=== PATIENT | female | born 1930 | race Caucasian/White ===

== ENCOUNTER 2016-09-05 23:40 | Emergency (ER) | payer MEDICARE ==
[2016-09-06 01:14] LABS: Hematocrit 39 % (35-47); Hemoglobin 12.9 g/dl (12.0-16.0); Mean Corpuscular HGB Conc 34 g/dl (31-36); Mean Corpuscular Hemoglobin 30 pg (27-31); Mean Corpuscular Volume 91 fL (80-97); Mean Platelet Volume 9 um3 (7.4-10.4); Red Blood Count 4.26 10^6/ul (4.0-5.4); Red Cell Distribution Width 13 % (10.5-15); White Blood Count 5.9 10^3/ul (3.5-10.8)
[2016-09-06 01:26] LABS: Albumin 4.1 g/dL (3.2-5.2); BUN/Creatinine Ratio 26.8 (8-20); Calcium 9.4 mg/dL (8.6-10.3); EGFR African American 84.8 (>60); EGFR Non-African American 65.9 (>60); Total Bilirubin 0.4 mg/dL (0.2-1.0); Total Protein 7.1 g/dL (6.4-8.9)
[2016-09-06 04:04] VITALS: BP 128/72
[2016-09-06 04:10] LABS: Urine Bacteria 1+ (Absent); Urine Bilirubin Negative (Negative); Urine Glucose Negative (Negative); Urine Nitrite Negative (Negative)
[2016-09-06] MEDS ORDERED: Levofloxacin TAB* 500 MG PO ONE (04:14)
[2016-09-06] MEDS ORDERED: Benzonatate CAP* 100 MG PO ONE (04:17)
--- NOTE | 2016-09-06 06:26 | ED ---
Lilia Belcher Salem, scribed for Da Merino on 09/06/16 at 0022 . GI/ HPI - HPI Summary HPI Summary: Patient is a 86 y/o female who presents to the ED with vaginal bleeding since earlier today. She reports a cough productive for pale sputum and hematuria. She denies dysuria, abd pain, CP, SOB, or melena. She had a UTI in June 2016. - History of Current Complaint Chief Complaint: EDUrogenitalProblems Time Seen by Provider: 09/05/16 23:55 Stated Complaint: RECTAL BLEED Hx Obtained From: Patient, Other: - Friend. Onset/Duration: Started Hours Ago Severity: Moderate Current Severity: Moderate Pain Intensity: 0 Associated Signs and Symptoms: Positive: Hematuria, Cough - Productive for pale sputum.. Negative: Dysuria, Abdominal Pain, Chest Pain, Melena Additional Signs & Symptoms: Positive: Vaginal Bleeding Aggravating Factor(s): Nothing Alleviating Factor(s): Nothing - Allergy/Home Medications Allergies/Adverse Reactions: Allergies Allergy/AdvReac Type Severity Reaction Status Date / Time No Known Allergies Allergy Verified 09/06/16 00:02 PMH/Surg Hx/FS Hx/Imm Hx Cardiovascular History: Reports: Hx Hypertension - ON MEDICATION FOR Musculoskeletal History: Reports: Other Musculoskeletal History - 1972- DISCECTOMY Sensory History: Reports: Hx Cataracts - LEFT EYE, Hx Contacts or Glasses - GLASSES-READING Denies: Hx Hearing Aid Opthamlomology History: Reports: Hx Cataracts - LEFT EYE, Hx Contacts or Glasses - GLASSES-READING - Cancer History Hx Chemotherapy: No Hx Radiation Therapy: No - Surgical History Surgery Procedure, Year, and Place: DISCECTOMY-LOWER BACK-1972. HYSTERECTOMY. CATARACT RIGHT EYE Hx Anesthesia Reactions: No Infectious Disease History: No Infectious Disease History: Denies: Traveled Outside the [place] in Last 30 Days - Family History Known Family History: Positive: Cardiac Disease - Brother. Negative: Diabetes - Social History Alcohol Use: Occasionally Hx Substance Use: No Substance Use Type: Reports: None Hx Tobacco Use: No Smoking Status (MU): Never Smoked Tobacco Review of Systems Negative: Chest Pain Positive: Cough - Productive for pale sputum. . Negative: Shortness Of Breath Negative: Abdominal Pain Positive: hematuria, other - No melena.. Negative: dysuria All Other Systems Reviewed And Are Negative: Yes Physical Exam - Summary Physical Exam Summary: PE done with female refurbish technician: Ana RN. Triage Information Reviewed: Yes Vital Signs On Initial Exam: Initial Vitals Temp Pulse Resp BP Pulse Ox 99.2 F 71 16 161/70 96 09/05/16 23:50 09/05/16 23:50 09/05/16 23:50 09/05/16 23:50 09/05/16 23:50 Vital Signs Reviewed: Yes Appearance: Positive: Well-Appearing, No Pain Distress Skin: Positive: Warm, Skin Color Reflects Adequate Perfusion, Dry Head/Face: Positive: Normal Head/Face Inspection Eyes: Positive: EOMI, KATRINA Neck: Positive: Supple, Nontender Respiratory/Lung Sounds: Positive: Clear to Auscultation, Breath Sounds Present , Other - Coughing. Cardiovascular: Positive: RRR, Pulses are Symmetrical in both Upper and Lower Extremities Abdomen Description: Positive: Nontender, Soft Bowel Sounds: Positive: Present Pelvic Exam: Positive: other - Vaginal bleeding. Musculoskeletal: Positive: Normal, Strength/ROM Intact Neurological: Positive: Normal, Sensory/Motor Intact, Alert, Oriented to Person Place, Time Diagnostics - Vital Signs Vital Signs Temp Pulse Resp BP Pulse Ox 09/05/16 23:50 99.2 F 71 16 161/70 96 - Laboratory Result Diagrams: 09/06/16 01:00 09/06/16 01:00 Lab Statement: Any lab studies that have been ordered have been reviewed, and results considered in the medical decision making process. - Radiology CXR Radiology Interpretation Completed By: ED Physician - Negative. - Ultrasound No standard instances Ultrasound Interpretation Completed By: Radiologist - Ovaries not seen. Hysterectomy. No adnexal masses. No free fluid. Unremarkable visualized portion of bladder. Re-Evaluation - Re-Evaluation First Eval Re-Evaluation Time: 04:15 Comment: Informed pt of plan. GIGU Course/Dx - Diagnoses Provider Diagnoses: UTI (urinary tract infection), Hematuria, Vaginal bleeding Discharge - Discharge Plan Condition: Stable Disposition: HOME Prescriptions: Benzonatate CAP* [Tessalon CAP*] 100 mg PO TID #15 cap Levofloxacin TAB* [Levaquin TAB*] 500 mg PO DAILY #6 tab Patient Education Materials: Benzonatate (By mouth), Levofloxacin (By mouth), Urinary Tract Infection in Women (ED), Hematuria (ED) Referrals: Christophe Nagel MD [Medical Doctor] - Additional Instructions: Follow up with Dr. Nagel (forestry fire aid) within 3 days. The documentation as recorded by the Lilia velasquez Salem accurately reflects the service I personally performed and the decisions made by Angelique camejo Emmanuel.
--- NOTE | 2016-09-06 07:35 | RAD ---
INDICATION: Cough COMPARISON: None TECHNIQUE: An AP portable view obtained at 0040 hours is submitted. FINDINGS: Bones/Soft Tissues: There are no acute bony findings. Cardiomediastinal: The cardiomediastinal silhouette is normal. Lungs: There are no infiltrates. Pleura: There are no pleural effusions. Other: None IMPRESSION: NO ACTIVE DISEASE.
--- NOTE | 2016-09-06 07:38 | RAD ---
INDICATION: Vaginal bleeding COMPARISON: None TECHNIQUE: Longitudinal and transverse transabdominal scans of the pelvis were obtained. FINDINGS: Uterus: Hysterectomy Free fluid: There is no significant free fluid . Ovaries: The ovaries are not identified. Other: None IMPRESSION: HISTORY. NONVISUALIZATION THE OVARIES LIKELY AGE-RELATED. NO MASS OR FREE FLUID IDENTIFIED.
== END 2016-09-06 04:31 | disposition home or self-care (01) ==
LOC: ED 23:40
DX: N39.0 Urinary tract infection, site not specified (principal); R31.9 Hematuria, unspecified; R05 Cough; N93.9 Abnormal uterine and vaginal bleeding, unspecified
CPT/HCPCS: 36415; 71010; 76856; 80053; 81003; 81015; 83605; 83880; 84484; 85025; 85610; 85730; 87086; 99283; A9270-GY

== ENCOUNTER 2017-07-10 11:37 | Emergency (ER) | payer MEDICARE ==
--- NOTE | 2017-07-10 12:26 | RAD ---
INDICATION: Chest pain. COMPARISON: Comparison is made with a prior study from September 06, 2016. TECHNIQUE: A portable view of the chest was obtained. FINDINGS: Cardiac and mediastinal contours appear to be within normal limits. The lungs are clear. No pleural effusion is seen. IMPRESSION: NO EVIDENCE FOR ACUTE DISEASE.
[2017-07-10 13:27] LABS: ABS Basophils 0 10^3/ul (0-0.2); ABS Eosinophils 0.1 10^3/ul (0-0.6); ABS Lymphocytes 1.3 10^3/ul (1.0-4.8); ABS Monocytes 0.6 10^3/ul (0-0.8); ABS Neutrophils 3.3 10^3/ul (1.5-7.7); ABS Nucleated RBC 0 10^3/ul; Eosinophil % 1.6 % (0-6); Hematocrit 39 % (35-47); Hemoglobin 12.9 g/dl (12.0-16.0); Mean Corpuscular HGB Conc 33 g/dl (31-36); Mean Corpuscular Hemoglobin 30 pg (27-31); Mean Corpuscular Volume 90 fL (80-97); Mean Platelet Volume 9 um3 (7.4-10.4); Nucleated Red Blood Cells % 0; Platelet Count 233 10^3/ul (150-450); Red Blood Count 4.31 10^6/ul (4.0-5.4); Red Cell Distribution Width 13 % (10.5-15); White Blood Count 5.3 10^3/ul (3.5-10.8)
--- NOTE | 2017-07-10 13:38 | ED ---
Respiratory - HPI Summary HPI Summary: Patient presents to the ED with cough. Denies congestion or sputum production. She states she had bronchitis last year and this feels similar. Denies cardiac history - although she takes 3 BP medications. Denies any and all other symptoms. Denies other health problems. Patient is very alert, ambulating well and with a friend. She states she is never sick, gets the flu shot every year, but is susceptible to bronchitis as this is her second time getting it. Denies SOB although during a coughing fit, will feel somewhat SOB which quickly resolves. Denies chest pain. Denies fevers, sweats and chills. Denies abd pain, N/V/C/D. Denies sick contacts. - History of Current Complaint Chief Complaint: EDGeneral Stated Complaint: COUGH Time Seen by Provider: 07/10/17 12:01 Hx Obtained From: Patient Onset/Duration: Sudden Onset Timing: Constant Initial Severity: Moderate Current Severity: Moderate Pain Intensity: 0 Character: Cough (Nonproductive) Sputum Amount: Scant Sputum Color: Clear Aggravating Factor(s): URI Associated Signs and Symptoms: Negative - Risk Factors Status Asthmaticus Risk Factors: Negative Pulmonary Embolism Risk Factors: Negative Cardiac Risk Factors: Negative Pseudomonas Risk Factors: Negative - Allergy/Home Medications Allergies/Adverse Reactions: Allergies Allergy/AdvReac Type Severity Reaction Status Date / Time No Known Allergies Allergy Verified 07/10/17 11:48 PMH/Surg Hx/FS Hx/Imm Hx Previously Healthy: Yes Cardiovascular History: Reports: Hx Hypertension - ON MEDICATION FOR Musculoskeletal History: Reports: Other Musculoskeletal History - 1972- DISCECTOMY Sensory History: Reports: Hx Cataracts - LEFT EYE, Hx Contacts or Glasses - GLASSES-READING Denies: Hx Hearing Aid Opthamlomology History: Reports: Hx Cataracts - LEFT EYE, Hx Contacts or Glasses - GLASSES-READING - Cancer History Hx Chemotherapy: No Hx Radiation Therapy: No - Surgical History Surgery Procedure, Year, and Place: DISCECTOMY-LOWER BACK-1972. HYSTERECTOMY. CATARACT RIGHT EYE Hx Anesthesia Reactions: No - Immunization History Hx Pertussis Vaccination: No Immunizations Up to Date: Yes Infectious Disease History: No Infectious Disease History: Denies: Traveled Outside the [place] in Last 30 Days - Family History Known Family History: Positive: Cardiac Disease - Brother. Negative: Diabetes - Social History Occupation: Retired Lives: With Family Alcohol Use: Occasionally Hx Substance Use: No Substance Use Type: Reports: None Hx Tobacco Use: No Smoking Status (MU): Never Smoked Tobacco Review of Systems Constitutional: Negative Negative: Fever, Chills, Fatigue, Skin Diaphoresis Eyes: Negative Negative: Palpitations, Chest Pain Positive: Cough Gastrointestinal: Negative Positive: no symptoms reported, see HPI Neurological: Negative Psychological: Normal All Other Systems Reviewed And Are Negative: Yes Physical Exam Triage Information Reviewed: Yes Vital Signs On Initial Exam: Initial Vitals Temp Pulse Resp BP Pulse Ox 99.2 F 76 16 169/78 96 07/10/17 11:48 07/10/17 11:48 07/10/17 11:48 07/10/17 11:48 07/10/17 11:48 Vital Signs Reviewed: Yes Appearance: Positive: Well-Appearing, Well-Nourished Skin: Positive: Warm, Skin Color Reflects Adequate Perfusion Head/Face: Positive: Normal Head/Face Inspection Eyes: Positive: EOMI, KATRINA, Conjunctiva Clear Neck: Positive: Supple, No Lymphadenopathy Respiratory/Lung Sounds: Positive: Clear to Auscultation, Breath Sounds Present Cardiovascular: Positive: Normal, RRR Neurological: Positive: Normal, Sensory/Motor Intact, Speech Normal Psychiatric: Positive: Affect/Mood Appropriate - Sabina Coma Scale Coma Scale Total: 15 Diagnostics - Vital Signs Vital Signs Temp Pulse Resp BP Pulse Ox 07/10/17 11:48 99.2 F 76 16 169/78 96 - Laboratory Lab Results: Lab Results 07/10/17 Range/Units 13:18 WBC 5.3 (3.5-10.8) 10^3/ul RBC 4.31 (4.0-5.4) 10^6/ul Hgb 12.9 (12.0-16.0) g/dl Hct 39 (35-47) % MCV 90 (80-97) fL MCH 30 (27-31) pg MCHC 33 (31-36) g/dl RDW 13 (10.5-15) % Plt Count 233 (150-450) 10^3/ul MPV 9 (7.4-10.4) um3 Neut % (Auto) 63.1 (38-83) % Lymph % (Auto) 24.0 L (25-47) % [place] % (Auto) 10.8 H (1-9) % Eos % (Auto) 1.6 (0-6) % Baso % (Auto) 0.5 (0-2) % Absolute Neuts (auto) 3.3 (1.5-7.7) 10^3/ul Absolute Lymphs (auto) 1.3 (1.0-4.8) 10^3/ul Absolute Monos (auto) 0.6 (0-0.8) 10^3/ul Absolute Eos (auto) 0.1 (0-0.6) 10^3/ul Absolute Basos (auto) 0 (0-0.2) 10^3/ul Absolute Nucleated RBC 0 10^3/ul Nucleated RBC % 0 Result Diagrams: 07/10/17 13:18 07/10/17 13:18 Lab Statement: Any lab studies that have been ordered have been reviewed, and results considered in the medical decision making process. Disposition - Course Course Of Treatment: During the course of treatment, labs obtained, ekg and chest xray. labs are WNL. EKG shows no abnormalities. Chest xray shows no acute abnormalities. Patient is requesting abx as this was occurring last year , was prescribed levaquin and symptoms improved. She remains with stable VS and is afebrile. She is Ok with discharge at this time. She is also given tessalon rx. - Differential Dx - Cardiopulmonary Differential Diagnoses - Cardiopulmonary: Other - cough - Diagnoses Provider Diagnoses: Upper respiratory infection Discharge - Discharge Plan Condition: Stable Disposition: HOME Prescriptions: Benzonatate CAP* [Tessalon CAP*] 100 mg PO TID #21 cap Levofloxacin TAB* [Levaquin TAB*] 500 mg PO DAILY #6 tab Patient Education Materials: Upper Respiratory Infection (ED), Bronchospasm (ED ) Referrals: Shay Tai MD [Primary Care Provider] - Additional Instructions: Please follow up with your PCP Tessalon up to three times daily for cough Levaquin once daily for 6 days
[2017-07-10 13:41] LABS: EGFR Non-African American 81.7 (>60)
[2017-07-10 14:00] VITALS: BP 167/66
== END 2017-07-10 14:00 | disposition home or self-care (01) ==
LOC: ED 11:37
DX: J06.9 Acute upper respiratory infection, unspecified (principal); R05 Cough
CPT/HCPCS: 36415; 71010; 80053; 83605; 83880; 85025; 93005; 99282

== ENCOUNTER 2018-10-14 04:40 | Inpatient (IN) | payer MEDICARE ==
[2018-10-14] MEDS ORDERED: NS 0.9% 500 ML* 500 ML IV ONE (05:04)
[2018-10-14] MEDS ORDERED: Morphine 4 MG/ML VIAL (1 ml) 4 MG/ML VIAL IV ONE ×2 (05:05→09:00)
[2018-10-14] MEDS ORDERED: Ondansetron INJ* 2 MG/ML VIAL IV ONE (05:05)
--- NOTE | 2018-10-14 05:10 | ED ---
Complex/Multi-Sys Presentation - HPI Summary HPI Summary: This patient is an 88 year old F brought in by ambulance to ED with a chief complaint of N/V x3 since 2300 last night. The patient rates the pain 7/10 in severity. Symptoms aggravated by nothing. Symptoms alleviated by nothing. Patient reports abdominal pain and chest discomfort. Last BM was earlier this morning. Patient denies diarrhea. The patient lives alone at home. PMHx of HTN. SHx of hysterectomy. - History Of Current Complaint Chief Complaint: EDChestPainROMI Time Seen by Provider: 10/14/18 04:45 Hx Obtained From: Patient Onset/Duration: Sudden Onset, Lasting Hours, Still Present Timing: Constant Severity Currently: Moderate Severity Initially: Moderate - 7/10 Location: Pain At: - abdominal pain, chest discomfort Aggravating Factor(s): nothing Alleviating Factor(s): nothing Associated Signs And Symptoms: Positive: Nausea, Vomiting, Abdominal Pain. Negative: Diarrhea - Allergies/Home Medications Allergies/Adverse Reactions: Allergies Allergy/AdvReac Type Severity Reaction Status Date / Time No Known Allergies Allergy Verified 10/14/18 04:53 PMH/Surg Hx/FS Hx/Imm Hx Cardiovascular History: Reports: Hx Hypertension - ON MEDICATION FOR Musculoskeletal History: Reports: Other Musculoskeletal History - 1972- DISCECTOMY Sensory History: Reports: Hx Cataracts - LEFT EYE, Hx Contacts or Glasses - GLASSES-READING Denies: Hx Hearing Aid Opthamlomology History: Reports: Hx Cataracts - LEFT EYE, Hx Contacts or Glasses - GLASSES-READING - Cancer History Hx Chemotherapy: No Hx Radiation Therapy: No - Surgical History Surgery Procedure, Year, and Place: DISCECTOMY-LOWER BACK-1972. HYSTERECTOMY. CATARACT RIGHT EYE Hx Anesthesia Reactions: No Infectious Disease History: No Infectious Disease History: Denies: Traveled Outside the [place] in Last 30 Days - Family History Known Family History: Positive: Cardiac Disease - Brother. Negative: Diabetes - Social History Alcohol Use: Occasionally Hx Substance Use: No Substance Use Type: Reports: None Hx Tobacco Use: No Smoking Status (MU): Never Smoked Tobacco Review of Systems Positive: Chest Pain - discomfort Positive: Abdominal Pain, Vomiting, Nausea. Negative: Diarrhea All Other Systems Reviewed And Are Negative: Yes Physical Exam - Summary Physical Exam Summary: VITAL SIGNS: Reviewed. GENERAL: Patient is a well-developed and nourished FEMALE who is lying comfortable in the stretcher. Patient is not in any acute respiratory distress. HEAD AND FACE: No signs of trauma. No ecchymosis, hematomas or skull depressions. No sinus tenderness. EYES: PERRLA, EOMI x 2, No injected conjunctiva, no nystagmus. EARS: Hearing grossly intact. Ear canals and tympanic membranes are within normal limits. MOUTH: Oropharynx within normal limits. NECK: Supple, trachea is midline, no adenopathy, no JVD, no carotid bruit, no c- spine tenderness, neck with full ROM. CHEST: Symmetric, no tenderness at palpation LUNGS: Clear to auscultation bilaterally. No wheezing or crackles. CVS: Regular rate and rhythm, S1 and S2 present, no murmurs or gallops appreciated. ABDOMEN: Soft, Diffuse abdominal tenderness. Mild to moderate distension with hypoactive bowel sounds. No rebound no guarding, and no masses palpated. EXTREMITIES: FROM in all major joints, no edema, no cyanosis or clubbing. NEURO: Alert and oriented x 3. No acute neurological deficits. Speech is normal and follows commands. SKIN: Dry and warm Triage Information Reviewed: Yes Vital Signs On Initial Exam: Initial Vitals Temp Pulse Resp BP Pulse Ox 98.2 F 118 16 154/75 95 10/14/18 04:40 10/14/18 04:40 10/14/18 04:40 10/14/18 04:40 10/14/18 04:40 Vital Signs Reviewed: Yes Diagnostics - Vital Signs Vital Signs Temp Pulse Resp BP Pulse Ox 10/14/18 04:51 72 14 154/75 96 10/14/18 04:40 98.2 F 118 16 154/75 95 - Laboratory Result Diagrams: 10/14/18 05:20 10/14/18 05:20 Lab Statement: Any lab studies that have been ordered have been reviewed, and results considered in the medical decision making process. - EKG 0449 Cardiac Rate: NL - 72 BPM EKG Rhythm: Sinus Rhythm Summary of EKG Findings: non-specific T wave changes Complex Multi-Symp Course/Dx Assessment/Plan: This patient is an 88 year old F brought in by ambulance to ED with a chief complaint of N/V x3 since 2300 last night. In the ED course, the patient was given Morphine, Zofran, and fluids. EKG reveals NSR at 72 BPM and non-specific T wave changes. This patient will be signed out to Dr. Abraham upon shift change, pending CT abd/pel. - Diagnoses Differential Diagnoses/HQI/PQRI: Other - abdominal pain Provider Diagnoses: Abdominal pain Discharge - Sign-Out/Discharge Documenting (check all that apply): Sign-Out Patient - pending CT abd/pel Signing out patient TO: Ramon Abraham Patient Received Moderate/Deep Sedation with Procedure: No - Discharge Plan Condition: Stable Referrals: Shay Tai MD [Primary Care Provider] - - Attestation Statements Document Initiated by Scribe: Yes Documenting Scribe: Michele Ridley Provider For Whom Scribe is Documenting (Include Credential): Nanci Iyer MD Scribe Attestation: I, Michele Ridley, scribed for Nanci Iyer MD on 10/14/18 at 0620. Status of Scribe Document: Ready
--- OUTSIDE RECORDS SUMMARY | 2018-10-14 05:13 | XMS REPORT | Continuity of Care Document ---
:1930 External Reference #:[id number] Author Name Christophe Nagel M.D. Address [address] [place] [address] Care Team Providers Name Role Phone Shay Tai M.D. Primary Care Physician Unavailable Payers Date Identification Numbers Payment Provider Subscriber Policy Number: [id number] Medicare [place] Gertrudis Hutton PayID: [id number] [address] [address] [place] [address] Policy Number: [id number] [facility] Health Care Options Gertrudis Hutton PayID: [id number] [facility] Claim Div [address] [place] [address] Advance Directives Description No Information Available Problems Description No Active Problems Family History Date Family Member(s) Observation Comments Father due to Old Age () Mother due to Leukemia () Number of Children 4 First Son A&W Second Son A&W Third Son A&W Fourth Son A&W Number of Siblings Siblings: several Social History Type Date Description Comments Sex Unknown Marital Status Patient is Living Situation Patient lives alone Occupation Retired Cigarette Use Does not smoke cigarettes Alcohol Drinks alcohol occasionally Tobacco Use Start: Unknown Patient has never smoked Drug Use Denies drug use Smoking Status Reviewed: 08/23/18 Patient has never smoked Daily Caffeine Drinks on average 2 cups of coffee a day Exercise Type/Frequency Exercises regularly Current Seat Belt/Car Seat Always uses a seat belt Currently Active The patient is currently not sexually active Contraceptive Methods Does not currently use any method of control Allergies, Adverse Reactions, Alerts Date Description Reaction Status Severity Comments 10/25/2004 Ciprofloxacin Active 10/25/2004 Trimethoprim Active Medications Medication Date Status Form Strength Qnty SIG Indications Ordering Provider Benazepril 04/25/ Active Tablets 10mg Every Day Unknown HCL 2013 Aspir-81 // Active Unknown 0000 Amlodipine / Active 5mg Unknown Besylate 0000 Bisoprolol / Active Unknown Fumarate 0000 Levaquin 09/06/ Hx Tablets 500mg 6tabs Every Day Unknown 2016 - 2017 Tessalon 09/06/ Hx Capsules 100mg 15caps Three Times Unknown Perles 2017 - Daily 2017 Macrobid 06/25/ Hx Capsules 100mg 14caps 1 by mouth Christophe Thompson 2015 - twice a day Gelber, 03/26/ M.D. 2017 Premarin 01/16/ Hx Cream 0.625mg/GM 12gm apply to N95.2 Christophe Thompson 2014 - area every Gelber, 08/15/ day M.D. 2018 Norvasc 04/25/ Hx Tablets 5mg Every Day Unknown 2013 Zebeta 04/25/ Hx Tablets 5mg Every Day Unknown 2013 Trimo-Chen 03/02/ Hx Gel 0.025% 1Tube 2 time N95.2 Katie 2011 - weekly x 4 Jump, 08/15/ weeks and ANP-C 2018 then 1 x qw after 4 weeks Estrace 04/29/ Hx Cream 0.1mg/GM 1month Insert 07/14 Merissa Leblanc 2009 - applicator Greg, 11/20/ full of Gabby 2010 cream to vagina 2-3 times per week Premarin 06/16/ Hx Tablets 0.625mg 90tabs 1 PO qd Marcie Barrett 2004 - Sly ALFORD, 07/26/ MJeffrey 2009 Premarin / Hx Tablets 0.9mg 90tabs 1 po qd Unknown - 2004 Levatol /00/ Hx Tablets Unknown - 2013 Lotrel / Hx Capsules Unknown - 2013 Tylenol Extra / Hx Unknown Strength 2017 Bisoprolol /00/ Hx Unknown Fumarate/Hydr 0000 - ochlorothiazi 2013 Benazepril 00/ Hx Tablets 10-12.5mg Unknown HCL/Hydrochlo - rothiazide 2017 Medications Administered in Office Medication Date Status Form Strength Qnty SIG Indications Ordering Provider PT SCRN Tbco Administered Injection Christophe Clemons. Id as Non User 019 Gabby Nagel PT SCRN Tbco Administered Injection Christophe Clemons. Id as Non User 018 Gabby Nagel PT SCRN Tbco Administered Injection Christophe Clemons. Id as Non User 018 Gabby Nagel Immunizations Description No Information Available Vital Signs Date Vital Result Comment 09/24/2018 12:58pm BP Systolic 146 mmHg BP Diastolic 76 mmHg Height 60 inches 5'0" Weight 109.00 lb BMI (Body Mass Index) 21.3 kg/m2 4 Parity 4 08/23/2018 11:12am BP Systolic 148 mmHg BP Diastolic 90 mmHg Height 60 inches 5'0" Weight 143.00 lb BMI (Body Mass Index) 27.9 kg/m2 4 Parity 4 03/26/2018 11:25am BP Systolic 140 mmHg BP Diastolic 86 mmHg Height 60 inches 5'0" Weight 114.00 lb BMI (Body Mass Index) 22.3 kg/m2 4 Parity 4 10/02/2017 2:18pm BP Systolic 138 mmHg BP Diastolic 76 mmHg Height 60 inches 5'0" Weight 115.00 lb BMI (Body Mass Index) 22.5 kg/m2 4 Parity 4 06/01/2017 10:53am BP Systolic 148 mmHg BP Diastolic 84 mmHg Height 60 inches 5'0" Weight 118.00 lb BMI (Body Mass Index) 23.0 kg/m2 4 Parity 4 02/03/2017 11:09am BP Systolic 140 mmHg BP Diastolic 82 mmHg Height 60 inches 5'0" Weight 118.00 lb BMI (Body Mass Index) 23.0 kg/m2 4 Parity 4 09/12/2016 9:07am BP Systolic 156 mmHg BP Diastolic 82 mmHg Height 60 inches 5'0" Weight 123.00 lb BMI (Body Mass Index) 24.0 kg/m2 4 Parity 4 09/06/2016 12:00am BP Systolic 128 mmHg BP Diastolic 72 mmHg Heart Rate 57 /min 09/05/2016 12:00am Body Temperature 99.2 F Respiratory Rate 16 /min Height 60 inches Weight 120.00 lb BMI (Body Mass Index) 23.4 kg/m2 06/25/2016 11:40am BP Systolic 142 mmHg BP Diastolic 82 mmHg Height 60 inches 5'0" Weight 123.00 lb BMI (Body Mass Index) 24.0 kg/m2 4 Parity 4 01/10/2016 12:42pm BP Systolic 116 mmHg BP Diastolic 64 mmHg Height 60 inches 5'0" Weight 122.00 lb BMI (Body Mass Index) 23.8 kg/m2 4 Parity 4 09/07/2015 1:55pm BP Systolic 118 mmHg BP Diastolic 72 mmHg Height 60 inches 5'0" Weight 122.00 lb BMI (Body Mass Index) 23.8 kg/m2 4 Parity 4 04/17/2015 10:55am BP Systolic 142 mmHg BP Diastolic 96 mmHg Height 60 inches 5'0" Weight 124.00 lb BMI (Body Mass Index) 24.2 kg/m2 4 Parity 2 01/16/2015 12:56pm BP Systolic 142 mmHg BP Diastolic 86 mmHg Height 60 inches 5'0" Weight 124.00 lb BMI (Body Mass Index) 24.2 kg/m2 11/16/2014 1:08pm BP Systolic 140 mmHg BP Diastolic 90 mmHg Height 60 inches 5'0" Weight 124.00 lb BMI (Body Mass Index) 24.2 kg/m2 10/19/2014 11:10am BP Systolic 172 mmHg BP Diastolic 88 mmHg Height 60 inches 5'0" Weight 124.00 lb BMI (Body Mass Index) 24.2 kg/m2 4 Parity 4 06/20/2014 12:36pm BP Systolic 160 mmHg BP Diastolic 96 mmHg BP Systolic Recheck 148 mmHg after exam BP Diastolic Recheck 84 mmHg after exam Height 60 inches 5'0" Weight 125.00 lb BMI (Body Mass Index) 24.4 kg/m2 2 Parity 2 02/21/2014 12:44pm BP Systolic 148 mmHg BP Diastolic 82 mmHg Height 60 inches 5'0" Weight 125.00 lb BMI (Body Mass Index) 24.4 kg/m2 2 Parity 2 11/04/2013 10:44am BP Systolic 152 mmHg BP Diastolic 86 mmHg Height 60 inches 5'0" Weight 122.00 lb BMI (Body Mass Index) 23.8 kg/m2 4 Parity 4 08/11/2013 10:36am BP Systolic 168 mmHg BP Diastolic 80 mmHg Height 60 inches 5'0" Weight 121.00 lb BMI (Body Mass Index) 23.6 kg/m2 4 Parity 4 05/11/2013 12:38pm BP Systolic 122 mmHg BP Diastolic 84 mmHg Height 60 inches 5'0" Weight 118.00 lb BMI (Body Mass Index) 23.0 kg/m2 4 Parity 4 02/03/2013 11:06am BP Systolic 138 mmHg BP Diastolic 82 mmHg Height 60 inches 5'0" Weight 118.00 lb BMI (Body Mass Index) 23.0 kg/m2 4 Parity 4 10/26/2012 10:44am BP Systolic 138 mmHg BP Diastolic 70 mmHg Height 60 inches 5'0" Weight 118.00 lb BMI (Body Mass Index) 23.0 kg/m2 4 Parity 4 08/02/2012 9:11am BP Systolic 138 mmHg BP Diastolic 78 mmHg Height 60 inches 5'0" Weight 117.00 lb BMI (Body Mass Index) 22.8 kg/m2 4 Parity 4 04/15/2012 12:34pm BP Systolic 120 mmHg BP Systolic Recheck 82 mmHg Height 60 inches 5'0" Weight 116.00 lb BMI (Body Mass Index) 22.7 kg/m2 4 Parity 4 04/01/2012 1:00pm BP Systolic 126 mmHg BP Diastolic 72 mmHg Height 60 inches 5'0" Weight 115.00 lb BMI (Body Mass Index) 22.5 kg/m2 4 Parity 4 03/02/2012 10:20am BP Systolic 130 mmHg BP Diastolic 78 mmHg Height 60 inches 5'0" Weight 117.00 lb BMI (Body Mass Index) 22.8 kg/m2 4 Parity 4 11/27/2011 10:57am BP Systolic 138 mmHg BP Diastolic 82 mmHg Height 60 inches 5'0" Weight 117.00 lb BMI (Body Mass Index) 22.8 kg/m2 4 Parity 4 07/30/2011 12:47pm BP Systolic 142 mmHg BP Diastolic 80 mmHg Height 61 inches 5'1" Weight 113.00 lb BMI (Body Mass Index) 21.3 kg/m2 4 Parity 4 04/07/2011 10:11am BP Systolic 154 mmHg BP Diastolic 88 mmHg Height 61 inches 5'1" Weight 114.00 lb BMI (Body Mass Index) 21.5 kg/m2 4 Parity 4 12/03/2010 1:01pm BP Systolic 162 mmHg BP Diastolic 74 mmHg Height 61 inches 5'1" Weight 113.00 lb BMI (Body Mass Index) 21.3 kg/m2 09/04/2010 10:35am BP Systolic 124 mmHg BP Diastolic 66 mmHg Height 61 inches 5'1" Weight 118.00 lb BMI (Body Mass Index) 22.3 kg/m2 04/29/2010 11:16am BP Systolic 122 mmHg BP Diastolic 78 mmHg Height 60 inches 5'0" Weight 114.00 lb BMI (Body Mass Index) 22.3 kg/m2 04/10/2010 1:42pm BP Systolic 140 mmHg BP Diastolic 90 mmHg Height 61.25 inches 5'1.25" Weight 113.00 lb BMI (Body Mass Index) 21.2 kg/m2 11/28/2009 10:07am BP Systolic 128 mmHg BP Diastolic 80 mmHg Height 60.5 inches 5'0.50" Weight 115.00 lb BMI (Body Mass Index) 22.1 kg/m2 07/27/2009 1:00pm BP Systolic 150 mmHg BP Diastolic 80 mmHg Height 60.5 inches 5'0.50" Weight 118.00 lb BMI (Body Mass Index) 22.7 kg/m2 4 Parity 4 03/15/2009 1:05pm BP Systolic 140 mmHg BP Diastolic 86 mmHg Height 60.5 inches 5'0.50" Weight 117.00 lb BMI (Body Mass Index) 22.5 kg/m2 11/23/2008 10:41am BP Systolic 122 mmHg BP Diastolic 90 mmHg Height 60.5 inches 5'0.50" Weight 119.00 lb BMI (Body Mass Index) 22.9 kg/m2 07/18/2008 11:22am BP Systolic 128 mmHg BP Diastolic 90 mmHg Height 60.5 inches 5'0.50" Weight 119.00 lb BMI (Body Mass Index) 22.9 kg/m2 Last Menstrual Period 0 03/20/2008 2:49pm BP Systolic 160 mmHg BP Diastolic 80 mmHg Height 60.5 inches 5'0.50" Weight 118.00 lb BMI (Body Mass Index) 22.7 kg/m2 11/16/2007 11:15am BP Systolic 180 mmHg BP Diastolic 90 mmHg Height 60.5 inches 5'0.50" Weight 117.00 lb BMI (Body Mass Index) 22.5 kg/m2 07/27/2007 9:59am BP Systolic 120 mmHg BP Diastolic 74 mmHg Height 60.5 inches 5'0.50" Weight 116.00 lb BMI (Body Mass Index) 22.3 kg/m2 11/17/2006 11:00am BP Systolic 130 mmHg BP Diastolic 80 mmHg Height 60.5 inches 5'0.50" Weight 119.00 lb BMI (Body Mass Index) 22.9 kg/m2 06/23/2006 9:17am BP Systolic 150 mmHg BP Diastolic 90 mmHg Height 60.5 inches 5'0.50" Weight 122.00 lb BMI (Body Mass Index) 23.4 kg/m2 02/24/2006 10:53am BP Systolic 120 mmHg BP Diastolic 78 mmHg Height 60.5 inches 5'0.50" Weight 121.00 lb BMI (Body Mass Index) 23.2 kg/m2 10/13/2005 10:04am BP Systolic 112 mmHg BP Diastolic 64 mmHg Height 60.5 inches 5'0.50" Weight 117.00 lb BMI (Body Mass Index) 22.5 kg/m2 06/16/2005 10:44am BP Systolic 164 mmHg BP Diastolic 84 mmHg Height 60.5 inches 5'0.50" Weight 111.00 lb BMI (Body Mass Index) 21.3 kg/m2 4 Parity 4 Results Test Date Facility Test Result H/L Range Note Laboratory test 02/03/2017 [facility] Cytology SEE RESULT 1 [place] [address] BELOW [phone] Human Papilloma Virus Rna Negative N Negative 2 Urine Culture And 09/12/2016 [facility] Urine Culture SEE RESULT 3 [place] [address] BELOW [phone] Laboratory Studies 09/06/2016 N2N/CCD Import Absolute 0 10^3/ul 0-0.2 Basophils (auto) Absolute Eosinophils (auto) 0.1 10^3/ul 0-0.6 Absolute Lymphocytes (auto) 1.4 10^3/ul 1.0-4.8 Absolute Monocytes (auto) 0.5 10^3/ul 0-0.8 Absolute Neutrophils (auto) 4.0 10^3/ul 1.5-7.7 Activated Partial Thromboplast Time 27.9 seconds 26.0-36.3 Alanine Aminotransferase (Alt/SGPT) 14 U/L 7-52 Albumin 4.1 g/dL 3.2-5.2 Albumin/Globulin Ratio 1.4 1-3 Alkaline Phosphatase 76 U/L 34-104 Anion Gap 9 mmol/L 2-11 Aspartate Amino Transf (Ast/Sgot) 17 U/L 13-39 B-Type Natriuretic Peptide 65 pg/mL BUN/Creatinine Ratio 26.8 High 8-20 Basophils (%) (Auto) 0.3 % 0-2 Blood Urea Nitrogen 22 mg/dL 6-24 Calcium Level 9.4 mg/dL 8.6-10.3 Carbon Dioxide Level 26 mmol/L 22-32 Chloride Level 102 mmol/L 101-111 Creatinine 0.82 mg/dL 0.51-0.95 Eosinophils (%) (Auto) 1.9 % 0-6 Estimated GFR () 84.8 Estimated GFR (Non- 65.9 Globulin 3.0 g/dL 2-4 Glucose Level 131 mg/dL High 70-100 Hematocrit 39 % 35-47 Hemoglobin 12.9 g/dL 12.0-16.0 International Ratio (Anticoag Ther) 0.86 Low 0.89-1.11 Lactic Acid Level 1.0 mmol/L 0.5-2.0 Lymphocytes (%) (Auto) 23.1 % Low 25-47 Mean Corpuscular Hemoglobin 30 pg 27-31 Mean Corpuscular Hemoglobin Concent 34 g/dL 31-36 Mean Corpuscular Volume 91 fL 80-97 Mean Platelet Volume 9 um3 7.4-10.4 Monocytes (%) (Auto) 7.8 % 1-9 Neutrophils (%) (Auto) 66.9 % 38-83 Nucleated RBC Absolute Count (auto) 0 10^3/ul Nucleated Red Blood Cells % 0.1 Platelet Count 207 10^3/ul 150-450 Potassium Level 4.0 mmol/L 3.5-5.0 Red Blood Count 4.26 10^6/ul 4.0-5.4 Red Cell Distribution Width 13 % 10.5-15 Sodium Level 137 mmol/L 133-145 Total Bilirubin 0.40 mg/dL 0.2-1.0 Total Protein 7.1 g/dL 6.4-8.9 Troponin I 0.00 ng/mL White Blood Count 5.9 10^3/ul 3.5-10.8 Laboratory Studies 09/05/2016 N2N/CCD Import Urine Specific 1.020 1.010- 1.030 [place] Urine pH 5.0 5-9 Urine Culture And 06/25/2016 [facility] Urine Culture SEE RESULT 4 [place] [address] BELOW [phone] 1 SEE RESULT BELOW Name: GERTRUDIS HUTTON : [address]: Christophe Nagel MD Acct: [id number] Unit: [id number] AGE: 87 Location: [facility] Re02/03/17 SEX: F Status: REG REF SPEC: [id number] JAYCEE: 02/03/17-[address] [facility] [address]: Christophe Nagel MD REQ: [id number] RECD: 02/03/175730 STATUS: SOUT _ ORDERED: TP IMAGE ANAL, HPV/Thin Prep COMMENTS: [id number] FINAL DIAGNOSIS Negative for Intraepithelial lesion or Malignancy A. Ectocervical/Endocervical Specimen Adequacy: Satisfactory of evaluation Transformation zone component identified Patient Information: HPV: High risk HPV RNA testing regardless of pap results. Actual Specimen Date: 02/03/17 LMP If Unknown: unknown Post Menopausal?: Y Date Time Test Result Flag (u) Normal Range 02/03/17 1424 HPV RNA Negative Negative The high-risk HPV types detected by the assay include: 16, 18, 31, 33, 35, 39, 45, 51, 52, 56, 58, 59, 66, and 68. Signed (signature on file) HATTIE Lopes (ASCP) 02/04 1421 This Pap test was evaluated with the assistance of the [employer] Test Imaging System. Due to cytologic findings at the leather polisher microscope, comprehensive manual rescreening by a Barytes Grinder may be required. The Pap Smear is a screening test designed to aid in the detection of premalignant and malignant conditions of the uterine cervix. It is not a diagnostic procedure and should not be used as the sole means of detecting cervical cancer. Both false- positive and false- negative reports do occur. Depending on your risk status, a Pap smear should be obtained and evaluated every 1-3 years. END OF REPORT * ML=Testing performed at Main Lab DEPARTMENT OF PATHOLOGY, [address] [place] [address] Corky Herrera M.D. Director [facility] # [id number] 2 The high-risk HPV types detected by the assay include: 16, 18, 31, 33, 35, 39, 45, 51, 52, 56, 58, 59, 66, and 68. 3 SEE RESULT BELOW Name: GERTRUDIS HUTTON Carlos Alberto : [address]: Christophe Nagel MD Acct: [id number] Unit: [id number] AGE: 86 Location: [facility] Re09/12/16 SEX: F Status: REG REF SPEC: [id number] JAYCEE: 09/12/[address] [facility] [address]: Christophe Nagel MD REQ: [id number] RECD: 09/12/16 STATUS: COMP _ SOURCE: URINE SPDESC: ORDERED: Urine Culture COMMENTS: [id number] Urine Source: Random Procedure Result Reported Site Urine Culture Final 09/13/16- 1357 ML No Growth (<1,000 CFU/mL) * ML - [facility] ([facility] . END OF REPORT * ML=Testing performed at Main Lab DEPARTMENT OF PATHOLOGY, [address] [place] [address] Corky Herrera M.D. Director [facility] # [id number] 4 SEE RESULT BELOW Name: GERTRUDIS HUTTON : [address]: Christophe Nagel MD Acct: [id number] Unit: [id number] AGE: 86 Location: [facility] Re06/25/16 SEX: F Status: REG REF SPEC: [id number] JAYCEE: 06/25/16-[address] [facility] [address]: Christophe Nagel MD REQ: [id number] RECD: 06/26/16 STATUS: COMP _ SOURCE: URINE [facility]: ORDERED: Urine Culture COMMENTS: [id number] Urine Source: Random Procedure Result Reported Site Urine Culture Final 06/27/16- 1202 ML No Growth (<1,000 CFU/mL) * ML - MAIN LAB ([facility]) . END OF REPORT * ML=Testing performed at Main Lab DEPARTMENT OF PATHOLOGY, [address] [place] [address] Corky Herrera M.D. Director [facility] # [id number] Procedures Date Code Description Status 09/12/2016 67744 Fitting & Insertion Of Pessary/Intravaginal Support Completed Device 07/13/2013 46809901 Mammogram Completed 07/18/2008 31364 Fitting & Insertion Of Pessary/Intravaginal Support Completed Device 03/24/2007 58932 Fitting & Insertion Of Pessary/Intravaginal Support Completed Device 11/17/2006 01033 Fitting & Insertion Of Pessary/Intravaginal Support Completed Device 06/23/2006 66708 Fitting & Insertion Of Pessary/Intravaginal Support Completed Device 02/24/2006 62414 Fitting & Insertion Of Pessary/Intravaginal Support Completed Device 10/13/2005 65275 Fitting & Insertion Of Pessary/Intravaginal Support Completed Device 06/13/2003 51052 Fitting & Insertion Of Pessary/Intravaginal Support Completed Device Encounters Type Date Location Provider Dx Diagnosis Office Visit 08/23/2018 [facility] Christophe Nagel N81.2 Incomplete 11:20a M.D. uterovaginal prolapse Office Visit 03/26/2018 [facility] Alden Arriaga81.9 Female genital 11:20a M.D. prolapse, unspecified Office Visit 10/02/2017 [facility] Christophe Nagel N81.9 Female genital 2:00p M.D. prolapse, unspecified Office Visit 06/01/2017 [facility] Christophe Nagel N81.9 Female genital 11:00a M.D. 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 (general) (routine) w/o abn findings Z12.4 Encounter for screening for malignant neoplasm of cervix Office Visit 09/12/2016 9:00a [facility] Christophe Ruano81.2 Incomplete Gabby Nagel uterovaginal prolapse N81.9 Female genital prolapse, unspecified Office Visit 06/25/2016 11:40a [facility] Christophe Ruano95.2 Postmenopausal Gabby Nagel atrophic vaginitis N30.00 Acute cystitis without hematuria Office Visit 01/10/2016 1:00p [facility] Christophe Ruano81.11 Cystocele, midline Gabby Nagel Office Visit 09/07/2015 2:20p [facility] Christophe Ruano81.2 Incomplete Gabby Nagel uterovaginal prolapse Office Visit 04/17/2015 11:00a [facility] Christophe Ruano81.9 Female genital Gabby Nagel prolapse, unspecified N81.11 Cystocele, midline Office Visit 01/16/2015 1:20p [facility] Christophe Thompson 627.3 Atrophic Vaginitis Gabby Nagel Postmenopausal 618.00 Vaginal Wall Prolapse NOS Office Visit 11/16/2014 1:00p [facility] Christophe Thompson 627.3 Atrophic Vaginitis Gabby Nagel Postmenopausal 618.00 Vaginal Wall Prolapse NOS Office Visit 10/19/2014 11:20a [facility] Katie Jump, 618.00 Vaginal Wall ANP-C Prolapse NOS 618.01 Cystocele, Midline 618.04 Rectocele 627.3 Atrophic Vaginitis Postmenopausal Office Visit 06/20/2014 1:20p [facility] Katie Jump, 618.00 Vaginal Wall ANP-C Prolapse NOS 618.01 Cystocele, Midline 618.04 Rectocele 618.9 Prolapse Genital Unspec Office Visit 02/21/2014 1:00p [facility] Katie Jump, 618.00 Vaginal Wall ANP-C Prolapse NOS 618.01 Cystocele, Midline 618.04 Rectocele 618.9 Prolapse Genital Unspec Office Visit 11/04/2013 11:20a [facility] Katie Jump, 618.00 Vaginal Wall ANP-C Prolapse NOS 618.01 Cystocele, Midline 618.04 Rectocele 618.9 Prolapse Genital Unspec 627.3 Atrophic Vaginitis Postmenopausal Office Visit 08/11/2013 11:20a [facility] Katie Jump, 618.00 Vaginal Wall ANP-C Prolapse NOS 618.01 Cystocele, Midline 618.04 Rectocele 618.9 Prolapse Genital Unspec Office Visit 05/11/2013 1:00p [facility] Katie Jump, 618.00 Vaginal Wall ANP-C Prolapse NOS 627.3 Atrophic Vaginitis Postmenopausal 618.01 Cystocele, Midline 618.04 Rectocele 618.9 Prolapse Genital Unspec Office Visit 02/03/2013 11:20a [facility] Katie Jump, 618.00 Vaginal Wall ANP-C Prolapse NOS 627.3 Atrophic Vaginitis Postmenopausal 618.01 Cystocele, Midline 618.04 Rectocele Office Visit 10/26/2012 11:20a [facility] Katie Jump, 618.00 Vaginal Wall ANP-C Prolapse NOS 627.3 Atrophic Vaginitis Postmenopausal 618.01 Cystocele, Midline 618.04 Rectocele Office Visit 08/02/2012 9:40a [facility] Katie Eid, 618.00 Vaginal Wall ANP-C Prolapse NOS 627.3 Atrophic Vaginitis Postmenopausal 618.01 Cystocele, Midline 618.04 Rectocele Office Visit 04/15/2012 1:00p [facility] Katie Eid, 618.00 Vaginal Wall ANP-C Prolapse NOS 627.3 Atrophic Vaginitis Postmenopausal 618.01 Cystocele, Midline 618.04 Rectocele Office Visit 04/01/2012 1:00p [facility] Mary Owen MD 618.00 Vaginal Wall Prolapse NOS 627.3 Atrophic Vaginitis Postmenopausal Office Visit 03/02/2012 10:40a [facility] Katie Eid, 618.01 Cystocele, Midline ANP-C 618.04 Rectocele 618.00 Vaginal Wall Prolapse NOS 627.3 Atrophic Vaginitis Postmenopausal Office Visit 11/27/2011 11:20a [facility] Katie Eid, 618.01 Cystocele, Midline ANP-C 618.04 Rectocele 618.00 Vaginal Wall Prolapse NOS 627.3 Atrophic Vaginitis Postmenopausal 618.9 Prolapse Genital Unspec Office Visit 09/04/2010 10:40a [facility] Merissa Leblanc 627.3 Atrophic Vaginiharris Garza M.D. Postmenopausal 618.01 Cystocele, Midline 618.04 Rectocele 618.00 Vaginal Wall Prolapse NOS Office Visit 04/29/2010 11:00a [facility] Merissa Leblanc 627.3 Atrophic Vaginiharris Garza M.D. Postmenopausal 618.01 Cystocele, Midline 618.04 Rectocele Office Visit 04/10/2010 1:40p [facility] Merissa Garza, 618.01 Cystocele, Midline M.D. 618.04 Rectocele 618.9 Prolapse Genital Unspec 627.3 Atrophic Vaginitis Postmenopausal Office Visit 11/28/2009 10:40a [facility] Merissa Garza, 618.01 Cystocele, Midline M.D. 618.04 Rectocele 618.9 Prolapse Genital Unspec Office Visit 07/27/2009 1:40p [facility] Katie Eid, 618.01 Cystocele, Midline ANP-C 618.04 Rectocele 618.9 Prolapse Genital Unspec 627.3 Atrophic Vaginitis Postmenopausal Office Visit 03/15/2009 1:00p [facility] Merissa Garza, 618.01 Cystocele, Midline M.DJayna 618.04 Rectocele 618.9 Prolapse Genital Unspec 627.3 Atrophic Vaginitis Postmenopausal Office Visit 11/23/2008 10:40a [facility] Merissa Garza, 618.01 Cystocele, Midline M.DJayna 618.04 Rectocele 618.9 Prolapse Genital Unspec 627.3 Atrophic Vaginitis Postmenopausal Office Visit 07/18/2008 11:20a [facility] Uriel Monique, 618.01 Cystocele , Midline M.DJayna 618.04 Rectocele 618.9 Prolapse Genital Unspec 618.00 Vaginal Wall Prolapse NOS 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 Office Visit 11/16/2007 11:00a [facility] Marcie Heart 618.01 Cystocele , Midline Gabby ALFORD 618.04 Rectocele Office Visit 07/27/2007 10:00a [facility] Marcie Heart 618.9 Prolapse Genital Gabby ALFORD Unspec Office Visit 03/24/2007 10:40a [facility] Merissa Leblanc 618.00 Vaginal Wall Gabby Garza Prolapse NOS 618.01 Cystocele, Midline 618.04 Rectocele 627.3 Atrophic Vaginitis Postmenopausal Office Visit 11/17/2006 11:00a [facility] Merissa Garza, 618.00 Vaginal Wall M.DJayna Prolapse NOS 618.01 Cystocele, Midline 618.04 Rectocele 627.3 Atrophic Vaginitis Postmenopausal Office Visit 06/23/2006 9:20a [facility] Merissa Leblanc 618.81 Incompetencjonathan Garza M.D. Pubocervical Tissue 618.00 Vaginal Wall Prolapse NOS 618.01 Cystocele, Midline 618.04 Rectocele 627.3 Atrophic Vaginitis Postmenopausal Office Visit 07/29/2005 1:15p [facility] Marcie Heart 618.01 Cystocele , Samanta ALFORD M.D. 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 Pubocervical Tissue Office Visit 10/25/2004 10:20a [facility] Marcie Heart 618.81 Incompetencjonathan ALFORD M.D. Pubocervical Tissue Office Visit 06/12/2004 10:00a [facility] Marcie Heart 618.81 Incompchepe ALFORD M.D. Pubocervical Tissue V76.2 Screening Malignant Neoplasm Cervix V15.89 History Personal Health Hazards Spec Other Office Visit 02/14/2004 10:20a [facility] Marcie Heart 618.8 Prolapse Genital Gabby ALFORD Spec Other Office Visit 10/17/2003 10:00a [facility] Merissa Garza 618.8 Prolapse Genital M.D. Spec Other Office Visit 06/13/2003 9:20a [facility] Merissa Garza 618.8 Prolapse Genital MJaynaDJayna Spec Other Plan of Treatment 09/24/2018 - Christophe Nagel M.D.N81.11 Cystocele, midlineComments:#8 ring does not fit . fit with a #5 ring with support . rtc 2 months
[2018-10-14 05:32] LABS: ABS Basophils 0 10^3/ul (0-0.2); ABS Eosinophils 0 10^3/ul (0-0.6); ABS Lymphocytes 0.8 10^3/ul (1.0-4.8); ABS Monocytes 0.3 10^3/ul (0-0.8); ABS Neutrophils 8.1 10^3/ul (1.5-7.7); ABS Nucleated RBC 0 10^3/ul; Eosinophil % 0.1 %; Hematocrit 42 % (33-41); Hemoglobin 14.1 g/dL (12.0-16.0); Lymphocyte % 9.1 %; Mean Corpuscular HGB Conc 33 g/dL (31-36); Mean Corpuscular Hemoglobin 30 pg (27-31); Mean Corpuscular Volume 91 fL (80-97); Mean Platelet Volume 8.7 fL (7.4-10.4); Nucleated Red Blood Cells % 0.1; Platelet Count 260 10^3/uL (150-450); Red Blood Count 4.64 10^6 /uL (3.70-4.87); Red Cell Distribution Width 13 % (10.5-15); White Blood Count 9.2 10^3/uL (3.5-10.8)
[2018-10-14 05:39] LABS: INR 0.91 (0.77-1.02)
[2018-10-14 05:50] LABS: ALT 11 U/L (7-52); AST 16 U/L (13-39); Albumin 4.3 g/dL (3.2-5.2); Albumin/Globulin Ratio 1.5 (1-3); Alkaline Phosphatase 73 U/L (34-104); Amylase 31 U/L (29-103); Anion Gap 10 mmol/L (2-11); Blood Urea Nitrogen 17 mg/dL (6-24); C Reactive Protein 2.15 mg/L (<8.01); CO2 Carbon Dioxide 26 mmol/L (22-32); Calcium 9.6 mg/dL (8.6-10.3); Chloride 102 mmol/L (101-111); EGFR African American 89.4 (>60); EGFR Non-African American 73.9 (>60); Globulin 2.9 g/dL (2-4); Glucose 197 mg/dL (70-100); Sodium 138 mmol/L (135-145); Total Protein 7.2 g/dL (6.4-8.9)
[2018-10-14] MEDS ORDERED: Iohexol 300* (CONTRAST) 10 ML SDV IV ONE (06:13)
[2018-10-14 06:17] LABS: Troponin I 0.01 ng/mL (<0.04)
--- NOTE | 2018-10-14 07:20 | ED ---
Progress - Progress Note Progress Note: This patient was signed out from Dr. Iyer to Dr. Abraham upon shift change pending CT abdomen/pelvis. EKG at 08:16 shows NSR at [address] elevations, Q waves in III, unchanged from previous EKG done earlier today. Abdomen/pelvis CT impression: 1. Early versus partial small bowel obstruction with the transition point in the lower right pelvic area. 2. Possible inflammatory small bowel disease distal to the obstruction small bowel. 3. Cholelithiasis. 4. Small amount of perisplenic fluid. 5. Hepatic cysts. 6. Hysterectomy. 7. Colonic diverticulosis. ED physician has reviewed this imaging report. Case discussed with Dr. Newsome, hospitalist, who accepted the patient for admission. - EKG/XRAY/CT EKG: NSR, unchanged from - EKG done earlier today Comments: EKG at 08:16 shows NSR at [address] elevations, Q waves in III Re-Evaluation - Re-Evaluation First Eval Re-Evaluation Time: 07:19 Change: Improved Comment: She denies discomfort in stretcher. Her abdomen is soft and nontender. Second Eval Re-Evaluation Time: 09:02 Change: Unchanged Comment: Discussed results and plan for admission. Course/Dx - Course Course Of Treatment: This patient was signed out by Dr. Iyer at shift change to follow with the the pelvic CT. Abdominal and pelvic CT Impression: 1. Early versus partial small bowel obstruction with the transition point in. the lower right pelvic area. 2. Possible inflammatory small bowel disease distal to the obstruction small. bowel. 3. Cholelithiasis. 4. Small amount of perisplenic fluid. 5. Hepatic cysts. 6. Hysterectomy. 7. Colonic diverticulosis. I discussed the case with Dr. Newsome from the hospital services who accepted the patient for admission. He requested to get a NG tube. Patient is hemoglobin after stable alert and oriented 3. - Diagnoses Provider Diagnoses: Abdominal pain, Partial small bowel obstruction - Provider Notifications Discussed Care Of Patient With: Jimmie Newsome Time Discussed With Above Provider: 09:02 Instructed by Provider To: Admit As Inpatient Discharge - Sign-Out/Discharge Documenting (check all that apply): Patient Departure - admit, Receiving Sign- Out Receiving patient FROM: Nanci Iyer Patient Received Moderate/Deep Sedation with Procedure: No - Discharge Plan Condition: Fair Disposition: ADMITTED TO [facility] - Billing Disposition and Condition Condition: FAIR Disposition: Admitted to [facility] - Attestation Statements Document Initiated by Jose E: Yes Documenting Scribe: Uriel Olivas Provider For Whom Jose E is Documenting (Include Credential): Ramon Abraham MD Scribe Attestation: IUriel, scribed for Ramon Abraham MD on 10/14/18 at 1818. Scribe Documentation Reviewed: Yes Provider Attestation: The documentation as recorded by the Uriel velasquez accurately reflects the service I personally performed and the decisions made by me, Ramon Abraham MD Status of Scribe Document: Viewed
[2018-10-14] MEDS ORDERED: Morphine INJ* 10 MG/ML 1 ML CARPUJECT IV ONE (08:40)
[2018-10-14] MEDS ORDERED: hydrALAZINE IV* 20 MG/ML VIAL IV SLOW PU PRN (11:02)
[2018-10-14] MEDS ORDERED: Labetalol IV* 5 MG/ML 20 ML VIAL IV PUSH PRN (11:02)
[2018-10-14 12:01] LABS: Urine Appearance Clear; Urine Bacteria Absent (Absent); Urine Bilirubin Negative (Negative); Urine Blood Negative (Negative); Urine Color Yellow; Urine Glucose 1+(50 mg/dL) (Negative); Urine Ketones 1+ (Negative); Urine Nitrite Negative (Negative); Urine Protein Negative (Negative); Urine Red Blood Cell Absent (Absent); Urine Specific Gravity > 1.060 (1.010-1.030); Urine Squamous Epithelial Cell Present (Absent); Urine Urobilinogen Negative (Negative); Urine White Blood Cell 1+(6-10/hpf) (Absent)
--- NOTE | 2018-10-14 13:11 | HP ---
HISTORY AND PHYSICAL: DATE OF ADMISSION: 10/14/18. ADMITTING PROVIDER: Jimmie Newsome MD PRIMARY CARE PROVIDER: Dr. Tai. CHIEF COMPLAINT: Upper abdominal pain, nausea, vomiting. HISTORY OF PRESENT ILLNESS: Gertrudis hutton is an 88-year-old female with a past medical history of hypertension. She was in her normal state of health when night prior to admission, sometime after 7 p.m., she started developing an aching pain in her epigastric and lower chest area. She was nauseous and has vomited 3 times (no blood but there was evidence of her prior food intake such as her lunchtime soup). Her last bowel movement was yesterday in the afternoon and she does not attest to having passed any gas since the pain developed. Of note, she is coming from independent living from [facility], is fairly independent. On evaluation at the [facility] Emergency Room, she has had 2 troponins that were negative. EKG without ischemic changes. She had a CT of the abdomen and pelvis with IV contrast, which demonstrated early versus partial small bowel obstruction with a transition point in the lower right pelvic area and a possible inflammatory small bowel disease distal to the obstruction of small bowel. Cholelithiasis, small amount of perisplenic fluid. Hepatic cyst, hysterectomy, colonic diverticulosis. She reported the pain as an 8/10 and continued nausea until she got Zofran in the emergency room. She took 2 baby aspirin prior to the admission without relief. She was referred to the hospitalist service for admission for early versus partial small bowel obstruction. She is still deciding whether or not she will consent to NG tube placement. She denies any shortness of breath or radiation of the pain into the jaw, neck, or down the arms. PAST MEDICAL HISTORY: Hypertension. PAST SURGICAL HISTORY: Hysterectomy in 1958, back surgery 30 years ago. ALLERGIES: No known drug allergies. FAMILY HISTORY: Her mother of leukemia at age 26. Father of unknown cause at age 90; he had a pacemaker. She had 1 full sister, 1 full brother; both , the brother of a heart attack at age 73, the sister at age 71 of "natural causes." She has 6 half-sisters and brothers most of whom are . 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 She is a never smoker. She occasionally has alcohol, but very infrequently. She has no drug use. She desires to be a do not resuscitate. Medical surrogate is her son, Tenisha. PHYSICAL EXAMINATION GENERAL APPEARANCE: In no acute distress. VITAL SIGNS: Temperature 98.2, heart rate 65, satting 91% on room air, respiratory rate 20, blood pressure on admission 154/75 and currently 120/69. HEENT: Normocephalic, atraumatic. Pupils are equal, round, and reactive to light. Extraocular motions intact. No scleral icterus. Moist mucous membranes. No oropharyngeal lesions. NECK: Supple. No neck stiffness. LUNGS: Clear to auscultation bilaterally with no wheezing, rales, or rhonchi. CARDIOVASCULAR: Regular rate and rhythm. No murmurs, rubs, or gallops. ABDOMEN: Soft. Tenderness in the epigastric region and periumbilical, radiates to the epigastric region as well. No Cavazos's sign. No rebound or guarding. EXTREMITIES: Warm and well-perfused. No peripheral edema. NEUROLOGIC: Cranial nerves II through XII intact. Collision Estimator strength 5/5. Hip flexion 5/5. Dorsi and plantarflexion 5/5. SKIN: No lesions, no rashes. DIAGNOSTIC STUDIES/LAB DATA: White count 9.2, hemoglobin 14.1, hematocrit 42, platelets 260. INR 0.91. Sodium 138, potassium 4.0, chloride 102, carbon dioxide 26, creatinine 0.74, glucose 197, calcium 9.6, lactic acid 1.2, magnesium 2.0. Total bili 0.50, AST 16, ALT 11, alk phos 73. Troponin 0.01 x2. CRP 2.15. Lipase less than 10, amylase 31, albumin 4.3. Imaging: CT abdomen and pelvis with impression: 1. Early versus partial small bowel obstruction with a transition point in the lower right pelvic area. 2. Possible inflammatory small bowel disease distal to the obstruction of small bowel. 3. Cholelithiasis. 4. Small amount of perisplenic fluid. 5. Hepatic cyst. 6. Hysterectomy. 7. Colonic diverticulosis. EKG shows normal sinus rhythm. No ST elevations or depression. There is T- wave inversion in aVL. ASSESSMENT AND PLAN: Gertrudis Hutton is an 88-year-old female with a past medical history of hypertension, otherwise independently living at [facility], presenting with nausea, vomiting, aching 8/10 abdominal pain, and not passing flatus with CT imaging concerning for partial versus early small bowel obstruction. 1. Small bowel obstruction (early versus partial). It was confirmed on CT abdomen and pelvis with IV contrast. She is being recommended observation and admission and placement of NG tube. She is still considering whether or not she would consent for an NG tube and would like to discuss the matter with her primary care provider, Dr. Tai, first before consenting. I am going to put her on n.p.o. Maintenance IV fluids, Zofran p.r.n. for nausea. I would like to do serial abdominal exams and pain meds only as needed. Consider KUB in the morning and/or surgical consult depending on clinical course. 2. Hypertension. She is normotensive here. I am holding her p.o. medications in the setting of n.p.o. 3. Abdominal pain/lower chest pain. For further completeness, we could get a third troponin, put her on telemetry. I do not believe this is a cardiac etiology. EKG without ischemic changes. 4. Code status. She initially stated she wanted to be DNR but later changed her mind and wanted to be FULL CODE. We will have to fill out MOLST paper work. Medical surrogate is her son, Tenisha. 5. DVT prophylaxis. We will put her on SCDs for now in case surgery is potentially needed. [id number]/[facility] #: [id number] MTDD
[2018-10-14] MEDS ORDERED: Lidocaine 2% JELLY* 5 ML TUBE LIDO2GEL7 TOPICAL ONE (13:19)
[2018-10-14] MEDS ORDERED: LIDOCAINE 2% TOPICAL ONE (14:00)
[2018-10-14] MEDS: NS 0.9% 1000 ML** 1,000 ML IV SCH (14:30)
[2018-10-14] MEDS: Ondansetron INJ* 2 MG/ML VIAL IV PRN (22:22)
[2018-10-15] MEDS: NS 0.9% 1000 ML** 1,000 ML IV SCH (03:14)
--- NOTE | 2018-10-15 07:52 | PN ---
Subjective Date of Service: 10/15/18 Interval History: C/O nausea, abd pain. No BM or flatus. No more emesis. Objective Active Medications: Hydralazine HCl (Apresoline Iv*) 10 mg IV SLOW PU Q2H PRN PRN Reason: SYSTOLIC BP GREATER THAN: Potassium Chloride/Dextrose (D5w Ns 0.9% 20meq Kcl 1000 Ml*) 1,000 mls @ 125 mls/hr IV PER RATE EZEQUIEL Labetalol HCl (Trandate Iv*) 20 mg IV PUSH Q2H PRN PRN Reason: BLOOD PRESSURE Ondansetron HCl (Zofran Inj*) 4 mg IV Q6H PRN PRN Reason: NAUSEA Last Admin: 10/14/18 22:22 Dose: 4 mg Oxygen Devices in Use Now: None Appearance: Alert, supine in bed. In fair spirits. Looks fairly comfortable. Eyes: No Scleral Icterus Respiratory: Symmetrical Chest Expansion and Respiratory Effort, Clear to Auscultation, Clear to Percussion Cardiovascular: NL Sounds; No Murmurs; No JVD, RRR, No Edema, - Abdominal: - - Soft, mild to mod tender all quadrants. No BS. Extremities: No Edema, No Clubbing, Cyanosis, - Skin: No Rash or Ulcers, No Nodules or Sclerosis, - Neurological: Alert and Oriented x 3, NL Sensation Result Diagrams: 10/14/18 05:20 10/14/18 05:20 Assess/Plan/Problems-Billing Assessment: - Patient Problems (1) SBO (small bowel obstruction) Current Visit: Yes Status: Acute Code(s): K56.609 - UNSP INTESTNL OBST, UNSP TO PARTIAL VERSUS COMPLETE OBST SNOMED Code(s): 989502466 Comment: Ice chips only diet. IV fluids. Dr. Summers to consult. (2) HTN (hypertension) Current Visit: Yes Status: Acute Code(s): I10 - ESSENTIAL (PRIMARY) HYPERTENSION SNOMED Code(s): 04432012 Comment: BP meds on hold (3) Prediabetes Current Visit: Yes Status: Acute Code(s): R73.03 - PREDIABETES SNOMED Code (s): 327337375 Comment: A1C 6.1% 10/14/18. FS glucose bid.
[2018-10-15] MEDS: Ondansetron INJ* 2 MG/ML VIAL IV PRN ×3 (07:58→22:29)
[2018-10-15] MEDS ORDERED: D5W NS 0.9% 20Meq KCL 1000 ML* 1,000 ML IV SCH (08:00)
[2018-10-15] MEDS: D5W NS 0.9% 20Meq KCL 1000 ML* 1,000 ML IV SCH ×2 (08:05→18:36)
--- NOTE | 2018-10-15 12:25 | CONS ---
CC: Dr. Summers at [facility]; primary care provider Dr. Tai; Dr. Nagel* CONSULTATION NOTE: DATE OF CONSULT: 10/15/18 LOCATION: This patient was seen at [facility] in room 411 on . CHIEF COMPLAINT: Small-bowel obstruction. HISTORY OF PRESENT ILLNESS: The patient is an 88-year-old female admitted to the hospitalist service on 10/14/18 with epigastric abdominal pain associated with nausea and vomiting. She was in her normal state of health when she developed epigastric pain on the evening of 10/13/18 after eating dinner. She was nauseated and vomited 3 times at home; there was no blood in the emesis but there was evidence of prior food intake. Her last bowel movement was 10/13/18; it was soft. No blood in the stool and she states that she typically has a soft formed stool daily. She denies any dysuria. She denies any flatus since the epigastric pain developed. On evaluation at the [facility] Emergency Department she had a CAT scan of the abdomen and pelvis with IV contrast, which demonstrated early versus partial small- bowel obstruction with a transition point in the lower right pelvic area and a possible inflammatory small-bowel segment distal to the obstruction. Cholelithiasis was noted, but no signs of cholecystitis. She is status post hysterectomy in 1957. She has a pessary in place for bladder prolapse and is followed every [address] Nagel. There was an attempt to place a nasogastric tube, which apparently was very difficult for the patient and she refused further attempts. Abdominal x-ray done today reveals air fluid levels in the stomach and dilated loops of small bowel in the left upper quadrant; no free air. PAST MEDICAL HISTORY: Hypertension. PAST SURGICAL HISTORY: Hysterectomy in 1958 and back surgery approximately 30 years ago. ALLERGIES: No known drug allergies. FAMILY HISTORY: Mother of leukemia at age 26. Father of unknown cause at age 90 and he had a pacemaker. No known anesthesia complications, bleeding tendencies or clotting disorders in the family. 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 She lives independently at [facility]; she very rarely drinks alcohol. She denies substance abuse. She desires to be a do not resuscitate and her medical surrogate is her son Tenisha. REVIEW OF SYSTEMS: Constitutional: No fevers or chills; no excessive fatigue. She reports over the past year her weight has gone from 120 to 110. She typically has a good appetite. General: No known history of anesthesia complications or bleeding tendencies. No history of deep vein thrombosis or pulmonary embolism. Respiratory: No dyspnea on exertion. No chronic cough. She has never been a smoker. Cardiovascular: No anginal chest pain. She has had 2 negative troponins and her EKG on admission was without ischemic changes. Gastrointestinal: As described in the history of present illness. Currently , she reports minimal pain at rest. She continues to have nausea, but no emesis. Genitourinary: No dysuria. As previously mentioned, she does have a pessary in place for bladder prolapse and is followed by Dr. Nagel every 4 months. Musculoskeletal: No current complaints of back pain or joint pain. Neurologic: No blurred vision. No areas of focal weakness or numbness. PHYSICAL EXAM: General Survey: The patient is an 88-year-old female, well developed, well nourished in no acute distress. Height 5 feet 4 inches, weight 107 pounds, body mass index 18.4. Skin: Warm, dry, intact. Physical exam was limited. Cardiovascular: Regular rate and rhythm. No murmurs, rubs or gallops. Abdomen hypoactive bowel sounds, softly distended, generalized tenderness throughout. No guarding, no rebound tenderness. Well-healed lower midline surgical scar. No obvious masses or organomegaly, but exam is limited by patient's discomfort with deep palpation. Extremities are warm, well perfused. No edema. Neurologic: Alert and oriented x3. DIAGNOSTIC STUDIES: Lab data on admission white count 9.2. Electrolytes within normal limits. Lactic acid 1.2. Imaging: CAT scan of the abdomen and pelvis with early versus partial small- bowel obstruction with transition point in the lower right pelvic area and possible inflammatory small bowel disease distal to the obstruction of the small bowel that was done with IV contrast on 10/14/18. Abdominal x-ray 2 views today revealed air fluid levels in the stomach and dilated loops of small bowel in the left upper quadrant with no free air. The imaging will be reviewed with Dr. Mendes and Dr. Summers. IMPRESSION: Small-bowel obstruction. PLAN: Continue n.p.o. and IV fluid resuscitation; the patient is not vomiting at this time and does not wish to have a nasogastric tube placed; imaging will be reviewed with Dr. Mendes and Dr. Summers for further planning. TIME SPENT: Sixty minutes with greater than 50% in dmyl-sp-bifm history taking , physical examination and coordination of care. JUAN DIEGO RAINEY NP [id number]/[facility] #: [id number] ALBERTA
[2018-10-15] MEDS: Morphine 4 MG/ML VIAL (1 ml) 4 MG/ML VIAL IV PRN ×2 (13:45→22:11)
[2018-10-16] MEDS: Ondansetron INJ* 2 MG/ML VIAL IV PRN (04:41)
[2018-10-16] MEDS: Morphine 4 MG/ML VIAL (1 ml) 4 MG/ML VIAL IV PRN (04:45)
[2018-10-16] MEDS: D5W NS 0.9% 20Meq KCL 1000 ML* 1,000 ML IV SCH (04:54)
[2018-10-16 06:14] LABS: ABS Basophils 0 10^3/ul (0-0.2); ABS Eosinophils 0 10^3/ul (0-0.6); ABS Monocytes 0.6 10^3/ul (0-0.8); ABS Neutrophils 5.4 10^3/ul (1.5-7.7); ABS Nucleated RBC 0 10^3/ul; Eosinophil % 0.6 %; Hematocrit 37 % (33-41); Hemoglobin 12.3 g/dL (12.0-16.0); Lymphocyte % 14.4 %; Mean Corpuscular HGB Conc 34 g/dL (31-36); Mean Corpuscular Hemoglobin 30 pg (27-31); Mean Corpuscular Volume 91 fL (80-97); Mean Platelet Volume 8.5 fL (7.4-10.4); Nucleated Red Blood Cells % 0; Platelet Count 238 10^3/uL (150-450); Red Blood Count 4.06 10^6 /uL (3.70-4.87); Red Cell Distribution Width 13 % (10.5-15)
[2018-10-16 06:28] LABS: BUN/Creatinine Ratio 19.4 (8-20); Calcium 8.4 mg/dL (8.6-10.3); EGFR African American 109.7 (>60); EGFR Non-African American 90.6 (>60); Potassium 3.9 mmol/L (3.5-5.0)
--- NOTE | 2018-10-16 09:42 | PN ---
Subjective Date of Service: 10/16/18 Interval History: Still c/o nausea and abdominal pain. Some burping. No flatus or BM. Objective Active Medications: Hydralazine HCl (Apresoline Iv*) 10 mg IV SLOW PU Q2H PRN PRN Reason: SYSTOLIC BP GREATER THAN: Potassium Chloride/Dextrose (D5w Ns 0.9% 20meq Kcl 1000 Ml*) 1,000 mls @ 100 mls/hr IV PER RATE EZEQUIEL Last Admin: 10/16/18 04:54 Dose: 100 mls/hr Labetalol HCl (Trandate Iv*) 20 mg IV PUSH Q2H PRN PRN Reason: BLOOD PRESSURE Morphine Sulfate (Morphine 4 Mg/Ml Vial (1 Ml)) 1 mg IV Q2H PRN PRN Reason: PAIN Last Admin: 10/16/18 04:45 Dose: 1 mg Ondansetron HCl (Zofran Inj*) 4 mg IV Q4H PRN PRN Reason: NAUSEA Last Admin: 10/16/18 04:41 Dose: 4 mg Vital Signs - 8 hr 10/16/18 10/16/18 10/16/18 03:15 04:01 04:45 Temperature 97.6 F 97.4 F Pulse Rate 76 76 Respiratory 19 18 15 Rate Blood Pressure 170/69 170/69 (mmHg) O2 Sat by Pulse 93 93 Oximetry 10/16/18 10/16/18 06:00 07:49 Temperature 98 F Pulse Rate 69 Respiratory 15 18 Rate Blood Pressure 146/73 (mmHg) O2 Sat by Pulse 95 Oximetry Oxygen Devices in Use Now: None Appearance: Alert, partly up in bed. In fair spirits. Looks comfortable. Eyes: No Scleral Icterus Respiratory: Symmetrical Chest Expansion and Respiratory Effort, Clear to Auscultation, Clear to Percussion Cardiovascular: NL Sounds; No Murmurs; No JVD, RRR, No Edema, - Abdominal: - - Soft, mild to mod tenderness diffusely. Obstructive BS. Extremities: No Edema, No Clubbing, Cyanosis, - Skin: No Rash or Ulcers, No Nodules or Sclerosis, - Neurological: Alert and Oriented x 3, NL Sensation Result Diagrams: 10/16/18 05:42 10/16/18 05:42 Assess/Plan/Problems-Billing Assessment: - Patient Problems (1) SBO (small bowel obstruction) Current Visit: Yes Status: Acute Code(s): K56.609 - UNSP INTESTNL OBST, UNSP TO PARTIAL VERSUS COMPLETE OBST SNOMED Code(s): 707552516 Comment: Ice chips only diet. Continue IV fluids. Abd Xray pending. (2) HTN (hypertension) Current Visit: Yes Status: Acute Code(s): I10 - ESSENTIAL (PRIMARY) HYPERTENSION SNOMED Code(s): 13791579 Comment: BP meds on hold (3) Prediabetes Current Visit: Yes Status: Acute Code(s): R73.03 - PREDIABETES SNOMED Code (s): 026792199 Comment: A1C 6.1% 10/14/18. FS glucose bid as iof 4/6 AM highest is 157.
--- NOTE | 2018-10-16 12:07 | PN ---
Progress Note - Progress Note Date of Service: 10/16/18 SOAP: Subjective: She is complaining of much more pain this morning She feels more distended No flatus or BM but is belching quite a bit-no vomiting She feels worse than yesterday Objective: Temp Pulse Resp BP Pulse Ox 98.4 F 72 20 169/75 96 10/16/18 11:24 10/16/18 11:24 10/16/18 11:24 10/16/18 11:24 10/16/18 11:24 Intake & Output 10/14/18 10/15/18 10/16/18 10/17/18 06:59 06:59 06:59 06:59 Intake Total 496 802 8615 0 Output Total 600 Balance 731 290 6936 0 Weight 120 lb 107 lb 3.2 oz Intake: IV Fluids 018 967 9292 D5 NS w/20K 2024 NS (0.9%) 607 410 Oral 0 16 0 Output: Urine 600 Other: Estimated Void Medium Large # Bowel Movements 0 # Voids 1 1 PEX: Comfortable-awake and alert Lungs are clear Abd is firm and distended. She has tenderness throughout with voluntary guarding. No bowel sounds are present. No hernias Laboratory Results - last 24 hr 10/16/18 10/16/18 10/16/18 04:13 05:42 05:42 WBC 7.0 RBC 4.06 Hgb 12.3 Hct 37 MCV 91 MCH 30 MCHC 34 RDW 13 Plt Count 238 MPV 8.5 Neut % (Auto) 77.0 Lymph % (Auto) 14.4 [place] % (Auto) 7.9 Eos % (Auto) 0.6 Baso % (Auto) 0.1 Absolute Neuts (auto) 5.4 Absolute Lymphs (auto) 1.0 Absolute Monos (auto) 0.6 Absolute Eos (auto) 0 Absolute Basos (auto) 0 Absolute Nucleated RBC 0 Nucleated RBC % 0 Sodium 141 Potassium 3.9 Chloride 109 Carbon Dioxide 27 Anion Gap 5 BUN 12 Creatinine 0.62 Est GFR ( Amer) 109.7 Est GFR (Non-Af Amer) 90.6 BUN/Creatinine Ratio 19.4 Glucose 159 H POC Glucose (mg/dL) 157 H Calcium 8.4 L AXR 4/6 reviewed: Remains distended small bowel consistent with small bowel obstruction Assessment: SBO-increasing abdominal pain at rest and on physical exam today. AXR show no signs of improvement. Labs ok, no evidence of peritonitis. CT done on admission shows probable transition point in the lower abdomen on small bowel. I discussed her progress with her and her son in her room today. She feels worse and is having significantly more abdominal pain today. It has been 48 hours since admission and she has no improvement. I'm worried about the level of her pain and the tenderness that she has on examination. With this consideration, I recommend an exploratory laparotomy today for surgical treatment of her SBO. She is healthy for her age and wants all possible treatments at this point and would like to proceed with surgery. I discussed the procedure with her and the risks of, but not limited to of bleeding, infection, injury to peritoneal and extra peritoneal structures, bowel resection, ostomy, abscess, sepsis, the risks of blood clots, anesthesia and were all explained. Her and he son's questions were answered. Plan: Exploratory laparotomy, possible bowel resection, possible ostomy today.
[2018-10-16] MEDS ORDERED: Buffered Lidocaine 1% SYRIN* 1 ML/SYRINGE INTRADERM ONE (13:17)
[2018-10-16] MEDS ORDERED: fentaNYL* 50 MCG/ML 2 ML VIAL (100 MCG VIAL) ONE ×3 (13:41→17:41)
[2018-10-16] MEDS ORDERED: ceFOXitin 2 GM IVPREMIX* 2 GM/50 ML BAG ONE (13:42)
[2018-10-16] MEDS ORDERED: Lactated Ringers 1000 ML Bag* 1,000 ML IV SCH (14:00)
[2018-10-16] MEDS ORDERED: Famotidine IV* 10 MG/ML 2 ML (20 mg) ONE (14:37)
[2018-10-16] MEDS ORDERED: Succinylcholine* 20 MG/ML 10 ML VIAL ONE (15:01)
[2018-10-16] MEDS ORDERED: Dexamethasone IV* 4 MG/ML 1 ML (4 MG) ONE (15:01)
[2018-10-16] MEDS ORDERED: Propofol* 10 MG/ML 20 ML BTL ONE (15:01)
[2018-10-16] MEDS ORDERED: Lidocaine 2% PF * 5 ML VIAL ONE (15:02)
[2018-10-16] MEDS ORDERED: Cisatracurium* 2 MG/ML MDV 5 ML ONE (15:08)
[2018-10-16] MEDS ORDERED: Acetaminophen IV 1GM/100ML * 10 MG/ML VIAL IVPB ONE (15:21)
[2018-10-16] MEDS ORDERED: PROCHLORPERAZINE INJ 5 MG/ML 2 ML VIAL IV PRN (15:21)
[2018-10-16] MEDS ORDERED: DiMENhydriNATE IV* 50 MG/ML VIAL IV PUSH PRN (15:21)
[2018-10-16] MEDS ORDERED: Naloxone* 0.4 MG/ML 1 ML VIAL IV PRN (15:21)
[2018-10-16] MEDS ORDERED: diPHENhydraMINE IV* 50 MG/ML 1 ml VIAL (BENADRYL) IV PRN (15:21)
[2018-10-16] MEDS ORDERED: Ondansetron INJ* 2 MG/ML VIAL IV PRN (15:21)
[2018-10-16] MEDS ORDERED: Phenylephrine 40 MCG/ML SYRINGE ONE (15:24)
[2018-10-16] MEDS ORDERED: EPHEDrine (Pressors)* 50 MG/ML VIAL ONE (15:31)
[2018-10-16] MEDS ORDERED: Bupivacaine 0.5%* 50 ML VIAL ONE (16:03)
--- NOTE | 2018-10-16 16:39 | BRIEFOPN ---
Brief Operative Note - Surgery Procedures: Procedures OPERATIVE REPORT Pre-op: Small bowel obstruction Post-Op: Complete small bowel obstruction secondary to adhesive band causing internal hernia Procedure:Exploratory laparotomy, lysis of adhesions Surgeon: MD Vaughn Asst: none Anes: general with local , Dr. Lopez IVF: On liter of crystalloid EBL:min Specimen: none Drain: none Wound: 3 To PACU
[2018-10-16] MEDS ORDERED: Acetaminophen IV 1GM/100ML * 100 ML ONE (16:43)
[2018-10-16] MEDS: fentaNYL* 50 MCG/ML 2 ML VIAL (100 MCG VIAL) IV PRN ×5 (16:45→17:42)
[2018-10-16] MEDS ORDERED: Morphine 4 MG/ML VIAL (1 ml) 4 MG/ML VIAL IV PRN (18:38)
[2018-10-16] MEDS: Famotidine IV* 10 MG/ML 2 ML (20 mg) IV SCH (21:01)
--- NOTE | 2018-10-17 01:30 | OP ---
CC: Dr. Shay Tai * DATE OF OPERATION: 10/16/18 - ROOM #338 DATE OF : 28 SURGEON: Jose Rafael Mendes MD STRE[address] COMMISSIONER: None. ANESTHESIOLOGIST: Dr. Lopez ANESTHESIA: General with local. PRE-OP DIAGNOSIS: Small bowel obstruction. POST-OP DIAGNOSIS: Complete small bowel obstruction secondary to adhesive band causing internal hernia. PROCEDURE: Exploratory laparotomy with lysis of adhesion. ESTIMATED BLOOD LOSS: Minimal. IV FLUIDS: 1 L of crystalloid. SPECIMENS: None. DRAINS: None. WOUND CLASSIFICATION: 3. BRIEF HISTORY: Ms. Gertrudis Hutton is an 88-year-old woman who presented to the emergency room 48 hours ago with abdominal discomfort, nausea, vomiting and distention. Her CAT scan showed findings worrisome for small bowel obstruction. She has been treated nonoperatively for 48 hours and has developed increasing distention and abdominal discomfort, is now being taken to operating room for exploratory laparotomy. Please see the transcribed preoperative dictated note. Risks, benefits, and alternatives were explained both to the patient and her son. DESCRIPTION OF PROCEDURE: Written informed consent was obtained, the abdomen was marked with indelible ink and preoperative antibiotics were administered. The patient was taken to the operating room, placed in the supine position. Sequential compression devices and warming blanket were applied. General anesthesia was administered. A Hernandez catheter and nasogastric tube were inserted. The abdomen was prepped and draped in usual sterile fashion. Time-out verification was completed. A vertical incision was made just below the umbilicus to just above the pubis through the previous lower midline hysterectomy scar. The peritoneal cavity was entered under direct vision. There was a large amount of serous non- smelling thin yellowish fluid which was aspirated. There was a markedly dilated small bowel. I was able to identify more proximally and run this distally and there was an adhesive band in the mid abdomen just slightly to the left of midline causing a complete small bowel obstruction that had been snared, a loop of small bowel of about 6 inches in length. I freed this up. There appeared to be omentum to the retroperitoneum and this was then divided. Distally the small bowel was completely collapsed and I believe that this was in the proximal to mid ileum. The cecum was collapsed. I did not evaluate the remainder of the colon. The small bowel involved with the hernia was hyperemic and erythematous, but was viable. There were two imprints from the band on the small bowel at the neck of the hernia and some areas of grayish discoloration and I did invert these with several Lembert 3-0 silk sutures in a transverse orientation. I did not feel resection was necessary. The abdomen was then fully irrigated. The small bowel was placed back in the abdominal cavity in an anatomic position as possible. The nasogastric tube was palpated in the body and antrum of the stomach. The midline fascia was closed with interrupted #1 Vicryl suture. The skin was approximated with the stapling device. Dry sterile dressings were applied. The patient tolerated the procedure well, was taken to recovery room in stable condition. [id number]/CPS #: [id number] ALBERTA
[2018-10-17] MEDS: D5W NS 0.9% 20Meq KCL 1000 ML* 1,000 ML IV SCH ×2 (03:43→18:56)
[2018-10-17 05:19] LABS: Hematocrit 34 % (33-41); Hemoglobin 11.5 g/dL (12.0-16.0); Mean Corpuscular HGB Conc 34 g/dL (31-36); Mean Corpuscular Hemoglobin 31 pg (27-31); Mean Corpuscular Volume 92 fL (80-97); Mean Platelet Volume 8.4 fL (7.4-10.4); Platelet Count 218 10^3/uL (150-450); Red Blood Count 3.74 10^6 /uL (3.70-4.87); Red Cell Distribution Width 13 % (10.5-15); White Blood Count 7.7 10^3/uL (3.5-10.8)
[2018-10-17 05:35] LABS: Calcium 7.7 mg/dL (8.6-10.3); EGFR African American 131.4 (>60); EGFR Non-African American 108.6 (>60); Potassium 4.1 mmol/L (3.5-5.0)
[2018-10-17] MEDS ORDERED: D5W NS IV ONE (08:00)
[2018-10-17] MEDS ORDERED: KCL IV ONE (08:00)
[2018-10-17] MEDS: Famotidine IV* 10 MG/ML 2 ML (20 mg) IV SCH ×2 (08:42→20:29)
[2018-10-17] MEDS: Morphine INJ* 2 MG/ML 1 ML SYRINGE (TWO MG - NEW SYRINGE VERSION) IV PRN ×4 (09:13→20:30)
--- NOTE | 2018-10-17 11:08 | PN ---
Progress Note - Progress Note Date of Service: 10/17/18 SOAP: Subjective: Doing well other than incisional pain OOB in chair Objective: Temp Pulse Resp BP Pulse Ox 98.0 F 73 18 150/60 98 10/17/18 07:38 10/17/18 07:38 10/17/18 10:45 10/17/18 07:38 10/17/18 08:00 Intake & Output 10/15/18 10/16/18 10/17/18 10/18/18 06:59 06:59 06:59 06:59 Intake Total 993 2450 2385 500 Output Total 600 1335 Balance 993 1850 1050 500 Weight 107 lb 3.2 oz Intake: IV Fluids 993 2434 2385 500 D5 NS w/20K 2024 935 500 LR 1400 NS (0.9%) 607 410 NS 50ML, Cefoxitin 2G 50 Oral 0 16 0 Output: NG Tube Drainage Amount 220 Urine 600 640 Hernandez 475 Other: Estimated Void Medium Large Large Date of Last Bowel unknown Movement # Bowel Movements 0 0 # Voids 1 1 1 PEX: Comfortable Lungs are clear Abd is soft and slightly distended. Dressing intact Ext without edema Laboratory Results - last 24 hr 10/16/18 10/17/18 10/17/18 21:22 04:54 04:54 WBC 7.7 RBC 3.74 Hgb 11.5 L Hct 34 MCV 92 MCH 31 MCHC 34 RDW 13 Plt Count 218 MPV 8.4 Sodium 140 Potassium 4.1 Chloride 111 Carbon Dioxide 25 Anion Gap 4 BUN 9 Creatinine 0.53 Est GFR ( Amer) 131.4 Est GFR (Non-Af Amer) 108.6 BUN/Creatinine Ratio 17.0 Glucose 173 H POC Glucose (mg/dL) 186 H Calcium 7.7 L 10/17/18 09:28 WBC RBC Hgb Hct MCV MCH MCHC RDW Plt Count MPV Sodium Potassium Chloride Carbon Dioxide Anion Gap BUN Creatinine Est GFR ( Amer) Est GFR (Non-Af Amer) BUN/Creatinine Ratio Glucose POC Glucose (mg/dL) 161 H Calcium Assessment: POD# 1 s/p exlap for SBO-lysis of adhesions Plan: NGT/Hernandez IVF OOB, pulmonary toilet Sub q heparin
[2018-10-17 12:42] LABS: Activated Partial Thrombo Time 23.9 seconds (26.0-36.3); INR 1.08 (0.77-1.02)
--- NOTE | 2018-10-17 14:11 | PN ---
Subjective Date of Service: 10/17/18 Interval History: Patient sleeping in bed, looks comfortable. Objective Active Medications: Famotidine (Pepcid Iv*) 20 mg IV Q12H [facility] Last Admin: 10/17/18 08:42 Dose: 20 mg Heparin Sodium (Porcine) (Heparin Vial(*)) 5,000 units SUBCUT Q12HR [facility] Hydralazine HCl (Apresoline Iv*) 10 mg IV SLOW PU Q2H PRN PRN Reason: SYSTOLIC BP GREATER THAN: Lactated Ringer's (Lactated Ringers 1000 Ml Bag*) 1,000 mls @ 125 mls/hr IV PER RATE [facility] Potassium Chloride/Dextrose (D5w Ns 0.9% 20meq Kcl 1000 Ml*) 1,000 mls @ 125 mls/hr IV PER RATE [facility] Labetalol HCl (Trandate Iv*) 20 mg IV PUSH Q2H PRN PRN Reason: BLOOD PRESSURE Morphine Sulfate (Morphine Inj (Syringe))*) 2 mg IV Q1H PRN PRN Reason: PAIN Last Admin: 10/17/18 10:43 Dose: 2 mg Ondansetron HCl (Zofran Inj*) 4 mg IV Q4H PRN PRN Reason: NAUSEA Last Admin: 10/16/18 04:41 Dose: 4 mg Vital Signs - 8 hr 10/17/18 10/17/18 10/17/18 07:38 08:00 09:13 Temperature 98.0 F Pulse Rate 73 Respiratory 17 18 18 Rate Blood Pressure 150/60 (mmHg) O2 Sat by Pulse 100 98 Oximetry 10/17/18 10/17/18 10/17/18 10:43 10:45 11:16 Temperature 98.4 F Pulse Rate 78 Respiratory 18 18 17 Rate Blood Pressure 143/61 (mmHg) O2 Sat by Pulse 94 Oximetry 10/17/18 12:06 Temperature Pulse Rate Respiratory 18 Rate Blood Pressure (mmHg) O2 Sat by Pulse Oximetry Oxygen Devices in Use Now: Nasal Cannula Appearance: Patient sleeping in bed, looks comfortable. Extremities: No Edema, No Clubbing, Cyanosis, - Skin: No Rash or Ulcers, No Nodules or Sclerosis, - Result Diagrams: 10/17/18 04:54 10/17/18 04:54 Microbiology and Other Data: Microbiology 10/14/18 11:45 Urine Culture - Final Urine Staphylococcus Lugdenensis Assess/Plan/Problems-Billing Assessment: - Patient Problems (1) SBO (small bowel obstruction) Current Visit: Yes Status: Acute Code(s): K56.609 - UNSP INTESTNL OBST, UNSP TO PARTIAL VERSUS COMPLETE OBST SNOMED Code(s): 293112167 Comment: S/P lysis of adhesions 10/16/18. Small amount of NG drainage. Increase IV fluids 10/17 to account for NG drainage. (2) HTN (hypertension) Current Visit: Yes Status: Acute Code(s): I10 - ESSENTIAL (PRIMARY) HYPERTENSION SNOMED Code(s): 39241015 Comment: BP meds on hold (3) Prediabetes Current Visit: Yes Status: Acute Code(s): R73.03 - PREDIABETES SNOMED Code (s): 225897178 Comment: A1C 6.1% 10/14/18. FS glucose bid as of 4/7 AM highest is 186.
[2018-10-17] MEDS: Heparin VIAL(*) 5000 UNITS/ML VIAL (FIVE THOUSAND) SUBCUT SCH (20:29)
[2018-10-18] MEDS: D5W NS 0.9% 20Meq KCL 1000 ML* 1,000 ML IV SCH ×3 (02:53→19:15)
[2018-10-18] MEDS: Morphine INJ* 2 MG/ML 1 ML SYRINGE (TWO MG - NEW SYRINGE VERSION) IV PRN ×3 (06:43→15:44)
[2018-10-18] MEDS: Heparin VIAL(*) 5000 UNITS/ML VIAL (FIVE THOUSAND) SUBCUT SCH ×2 (09:21→20:34)
[2018-10-18] MEDS: Famotidine IV* 10 MG/ML 2 ML (20 mg) IV SCH ×2 (09:21→20:36)
--- NOTE | 2018-10-18 15:18 | PN ---
Progress Note - Progress Note Date of Service: 10/18/18 SOAP: Subjective: She "feels like I was hit by a truck" No flatus, no N/V Pain is adequately controlled Ambulated a little yesterday Objective: Temp Pulse Resp BP Pulse Ox 97.6 F 99 16 170/76 98 10/18/18 11:48 10/18/18 11:48 10/18/18 11:49 10/18/18 11:48 10/18/18 11:48 Intake & Output 10/16/18 10/17/18 10/18/18 10/19/18 06:59 06:59 06:59 06:59 Intake Total 2450 2385 2580 990 Output Total 600 1335 2700 1475 Balance 1850 1050 -120 -485 Intake: IV Fluids 2434 2385 2580 990 D5 NS w/20K 2024 935 2580 990 LR 1400 NS (0.9%) 410 NS 50ML, Cefoxitin 2G 50 Oral 16 0 0 Output: NG Tube Drainage Amount 220 460 75 Urine 600 640 550 Mathew 475 2240 850 Other: Estimated Void Large Large Date of Last Bowel unknown Movement # Bowel Movements 0 0 # Voids 1 1 PEX: Comfortable Lungs are clear Abd is soft and slightly distended, dressing intact. No bowel sounds present. Assessment: POD #2 s/p [id number] of adhesions post-op ileus Minimal NGT output Plan: D/C NGT and mathew Increase activity Analgesia Sub q heparin Ice chips po
--- NOTE | 2018-10-18 19:04 | PN ---
Subjective Date of Service: 10/18/18 Interval History: Still some nausea, no appetite. No flatus or BM. No new c/o. Objective Active Medications: Famotidine (Pepcid Iv*) 20 mg IV Q12H [facility] Last Admin: 10/18/18 09:21 Dose: 20 mg Heparin Sodium (Porcine) (Heparin Vial(*)) 5,000 units SUBCUT Q12HR [facility] Last Admin: 10/18/18 09:21 Dose: 5,000 units Hydralazine HCl (Apresoline Iv*) 10 mg IV SLOW PU Q2H PRN PRN Reason: SYSTOLIC BP GREATER THAN: Potassium Chloride/Dextrose (D5w Ns 0.9% 20meq Kcl 1000 Ml*) 1,000 mls @ 100 mls/hr IV PER RATE [facility] Labetalol HCl (Trandate Iv*) 20 mg IV PUSH Q2H PRN PRN Reason: BLOOD PRESSURE Morphine Sulfate (Morphine Inj (Syringe))*) 2 mg IV Q1H PRN PRN Reason: PAIN Last Admin: 10/18/18 15:44 Dose: 2 mg Ondansetron HCl (Zofran Inj*) 4 mg IV Q4H PRN PRN Reason: NAUSEA Last Admin: 10/16/18 04:41 Dose: 4 mg Vital Signs - 8 hr 10/18/18 10/18/18 10/18/18 11:48 11:49 15:42 Temperature 97.6 F 98.2 F Pulse Rate 99 91 Respiratory 16 16 14 Rate Blood Pressure 170/76 173/83 (mmHg) O2 Sat by Pulse 98 93 Oximetry 10/18/18 10/18/18 10/18/18 15:44 16:00 16:08 Temperature Pulse Rate Respiratory 14 Rate Blood Pressure 159/64 (mmHg) O2 Sat by Pulse 93 Oximetry Oxygen Devices in Use Now: None Appearance: Alert, partly up in bed. In good spirits. Looks comfortable. Eyes: No Scleral Icterus Abdominal: - - Abd distended but soft. No BS. Tender. Extremities: No Edema, No Clubbing, Cyanosis, - Skin: No Rash or Ulcers, No Nodules or Sclerosis, - Neurological: Alert and Oriented x 3, NL Sensation Result Diagrams: 10/17/18 04:54 10/17/18 04:54 Microbiology and Other Data: Microbiology 10/14/18 11:45 Urine Culture - Final Urine Staphylococcus Lugdenensis Assess/Plan/Problems-Billing Assessment: - Patient Problems (1) SBO (small bowel obstruction) Current Visit: Yes Status: Acute Code(s): K56.609 - UNSP INTESTNL OBST, UNSP TO PARTIAL VERSUS COMPLETE OBST SNOMED Code(s): 332051883 Comment: S/P lysis of adhesions 10/16/18. NG tube out 10/18, decrease IV fluids 10/18. (2) HTN (hypertension) Current Visit: Yes Status: Acute Code(s): I10 - ESSENTIAL (PRIMARY) HYPERTENSION SNOMED Code(s): 10073711 Comment: BP meds on hold (3) Prediabetes Current Visit: Yes Status: Acute Code(s): R73.03 - PREDIABETES SNOMED Code (s): 648634112 Comment: A1C 6.1% 10/14/18. FS glucose bid as of 4/8 AM highest is 186.
[2018-10-19] MEDS: Morphine INJ* 2 MG/ML 1 ML SYRINGE (TWO MG - NEW SYRINGE VERSION) IV PRN ×4 (01:05→20:53)
[2018-10-19] MEDS: D5W NS 0.9% 20Meq KCL 1000 ML* 1,000 ML IV SCH ×2 (04:56→18:04)
[2018-10-19 06:30] LABS: BUN/Creatinine Ratio 5.6 (8-20); Calcium 8.3 mg/dL (8.6-10.3); EGFR African American 128.6 (>60); EGFR Non-African American 106.3 (>60); Potassium 3.6 mmol/L (3.5-5.0)
[2018-10-19] MEDS: Famotidine IV* 10 MG/ML 2 ML (20 mg) IV SCH ×2 (07:36→20:50)
[2018-10-19] MEDS: Heparin VIAL(*) 5000 UNITS/ML VIAL (FIVE THOUSAND) SUBCUT SCH ×2 (09:42→20:55)
--- NOTE | 2018-10-19 11:29 | PN ---
Progress Note - Progress Note Date of Service: 10/19/18 SOAP: Subjective: Feels a little nauseated today Ambulated in halls No flatus Pain is adequately controlled Objective: Temp Pulse Resp BP Pulse Ox 99.3 F 90 16 176/72 93 10/19/18 07:30 10/19/18 07:30 10/19/18 10:04 10/19/18 07:34 10/19/18 07:30 Intake & Output 10/17/18 10/18/18 10/19/18 10/20/18 06:59 06:59 06:59 06:59 Intake Total 2385 2580 3030 Output Total 1335 2700 3325 450 Balance 1050 -120 -295 -450 Intake: IV Fluids 2385 2580 2970 D5 NS w/20K 935 2580 2970 LR 1400 NS 50ML, Cefoxitin 2G 50 Oral 0 0 60 Output: NG Tube Drainage Amount 220 460 75 Urine 640 2400 450 Hernandez 475 2240 850 Other: Estimated Void Large Date of Last Bowel unknown Movement # Bowel Movements 0 0 # Voids 1 PEX: Comfortable Abd is soft and slightly distended. Incision is CDI, dressing changed. Few bowel sounds present Assessment: POD#3 s/p exlap for SBO-lysis of adhesions Post-op ileus Plan: Continue Ice chips Decrease IVF Increase activity Check labs 10/20 H2 nigel, subq heparin
--- NOTE | 2018-10-19 20:21 | PN ---
Subjective Date of Service: 10/19/18 Interval History: nausea, no chest pain, no flatus. Surgery note appreciated Objective Active Medications: Famotidine (Pepcid Iv*) 20 mg IV Q12H [facility] Last Admin: 10/19/18 07:36 Dose: 20 mg Heparin Sodium (Porcine) (Heparin Vial(*)) 5,000 units SUBCUT Q12HR [facility] Last Admin: 10/19/18 09:42 Dose: 5,000 units Hydralazine HCl (Apresoline Iv*) 10 mg IV SLOW PU Q2H PRN PRN Reason: SYSTOLIC BP GREATER THAN: Potassium Chloride/Dextrose (D5w Ns 0.9% 20meq Kcl 1000 Ml*) 1,000 mls @ 50 mls /hr IV PER RATE [facility] Last Admin: 10/19/18 18:04 Dose: 50 mls/hr Labetalol HCl (Trandate Iv*) 20 mg IV PUSH Q2H PRN PRN Reason: BLOOD PRESSURE Morphine Sulfate (Morphine Inj (Syringe))*) 2 mg IV Q1H PRN PRN Reason: PAIN Last Admin: 10/19/18 13:51 Dose: 2 mg Ondansetron HCl (Zofran Inj*) 4 mg IV Q4H PRN PRN Reason: NAUSEA Last Admin: 10/16/18 04:41 Dose: 4 mg Vital Signs - 8 hr 10/19/18 10/19/18 10/19/18 13:51 15:17 15:30 Temperature 98.4 F Pulse Rate 85 Respiratory 16 16 16 Rate Blood Pressure 164/73 (mmHg) O2 Sat by Pulse 93 Oximetry 10/19/18 16:00 Temperature Pulse Rate Respiratory Rate Blood Pressure (mmHg) O2 Sat by Pulse 93 Oximetry Oxygen Devices in Use Now: None Appearance: awake, alert. no distress Ears/Nose/Mouth/Throat: NL Teeth, Lips, Gums Neck: NL Appearance and Movements; NL JVP Respiratory: Symmetrical Chest Expansion and Respiratory Effort, Clear to Auscultation Cardiovascular: NL Sounds; No Murmurs; No JVD Abdominal: - - absent bowel sounds. mia-incisional tenderness. no rebound Result Diagrams: 10/17/18 04:54 10/19/18 05:53 Microbiology and Other Data: Microbiology 10/14/18 11:45 Urine Culture - Final Urine Staphylococcus Lugdenensis Assess/Plan/Problems-Billing Assessment: - Patient Problems (1) HTN (hypertension) Current Visit: Yes Status: Acute Code(s): I10 - ESSENTIAL (PRIMARY) HYPERTENSION SNOMED Code(s): 18121712 Comment: - BP meds on hold, only on PRN labetelol and hydralazine - I will start her on low dose lisinopril 10 mg daily. keep almodipine on hold given her ileus (2) Prediabetes Current Visit: Yes Status: Acute Code(s): R73.03 - PREDIABETES SNOMED Code (s): 508420274 Comment: A1C 6.1% 10/14/18. FS glucose bid as of 8 AM highest is 186. (3) SBO (small bowel obstruction) Current Visit: Yes Status: Acute Code(s): K56.609 - UNSP INTESTNL OBST, UNSP TO PARTIAL VERSUS COMPLETE OBST SNOMED Code(s): 790934788 Comment: S/P lysis of adhesions 10/16/18. NG tube out 10/18, decrease IV fluids 10/18. - Surgery recommended to keep IVF and Activity, ICE chips only (4) DVT prophylaxis Current Visit: Yes Status: Acute Code(s): SAE8739 - SNOMED Code(s): 098015059 Comment: Heparin SQ
[2018-10-20] MEDS: Morphine INJ* 2 MG/ML 1 ML SYRINGE (TWO MG - NEW SYRINGE VERSION) IV PRN ×6 (02:18→21:24)
[2018-10-20] MEDS: Ondansetron INJ* 2 MG/ML VIAL IV PRN ×2 (02:20→12:32)
[2018-10-20 06:17] LABS: ABS Basophils 0 10^3/ul (0-0.2); ABS Eosinophils 0.1 10^3/ul (0-0.6); ABS Lymphocytes 0.9 10^3/ul (1.0-4.8); ABS Monocytes 0.5 10^3/ul (0-0.8); ABS Neutrophils 4.2 10^3/ul (1.5-7.7); ABS Nucleated RBC 0 10^3/ul; Eosinophil % 1.8 %; Hematocrit 31 % (33-41); Hemoglobin 10.9 g/dL (12.0-16.0); Lymphocyte % 15.1 %; Mean Corpuscular HGB Conc 35 g/dL (31-36); Mean Corpuscular Hemoglobin 31 pg (27-31); Mean Corpuscular Volume 90 fL (80-97); Mean Platelet Volume 8.7 fL (7.4-10.4); Nucleated Red Blood Cells % 0; Platelet Count 219 10^3/uL (150-450); Red Cell Distribution Width 13 % (10.5-15); White Blood Count 5.7 10^3/uL (3.5-10.8)
[2018-10-20 06:34] LABS: BUN/Creatinine Ratio 7.8 (8-20); Calcium 8.2 mg/dL (8.6-10.3); EGFR African American 137.4 (>60); EGFR Non-African American 113.5 (>60); Magnesium 1.4 mg/dL (1.9-2.7); Phosphorus 2.8 mg/dL (2.5-5.0); Potassium 3.4 mmol/L (3.5-5.0)
[2018-10-20] MEDS: Famotidine IV* 10 MG/ML 2 ML (20 mg) IV SCH ×2 (08:25→21:32)
[2018-10-20] MEDS: Heparin VIAL(*) 5000 UNITS/ML VIAL (FIVE THOUSAND) SUBCUT SCH ×2 (08:26→21:32)
[2018-10-20] MEDS ORDERED: Magnesium Sulfate 2 GM IV* 2 GM/50 ML BAG IVPB ONE (08:48)
--- NOTE | 2018-10-20 10:01 | PN ---
Progress Note - Progress Note Date of Service: 10/20/18 SOAP: Subjective: Remains fatigued but has ambulated and sat in chair No vomiting No flatus or BM Pain adequately controlled Objective: Temp Pulse Resp BP Pulse Ox 98.1 F 95 18 136/70 95 10/20/18 07:17 10/20/18 07:17 10/20/18 08:09 10/20/18 08:31 10/20/18 08:00 Intake & Output 10/18/18 10/19/18 10/20/18 10/21/18 06:59 06:59 06:59 06:59 Intake Total 2580 3030 50 Output Total 2700 3325 2600 200 Balance -120 -295 -2550 -200 Intake: IV Fluids 2580 2970 D5 NS w/20K 2580 2970 Oral 0 60 50 Output: NG Tube Drainage Amount 460 75 Urine 2400 2600 200 Hernandez 2240 850 Other: # Bowel Movements 0 0 PEX: Abd is soft and slightly distended. Incision is CDI. Few bowel sounds are present. Appropriate incisional tenderness. Laboratory Results - last 24 hr 10/19/18 10/20/18 10/20/18 21:18 05:28 05:28 WBC 5.7 RBC 3.50 L Hgb 10.9 L Hct 31 L MCV 90 MCH 31 MCHC 35 RDW 13 Plt Count 219 MPV 8.7 Neut % (Auto) 73.7 Lymph % (Auto) 15.1 Kendall % (Auto) 9.2 Eos % (Auto) 1.8 Baso % (Auto) 0.2 Absolute Neuts (auto) 4.2 Absolute Lymphs (auto) 0.9 L Absolute Monos (auto) 0.5 Absolute Eos (auto) 0.1 Absolute Basos (auto) 0 Absolute Nucleated RBC 0 Nucleated RBC % 0 Sodium 138 Potassium 3.4 L Chloride 103 Carbon Dioxide 29 Anion Gap 6 BUN 4 L Creatinine 0.51 Est GFR ( Amer) 137.4 Est GFR (Non-Af Amer) 113.5 BUN/Creatinine Ratio 7.8 L Glucose 126 H POC Glucose (mg/dL) 138 H Calcium 8.2 L Phosphorus 2.8 Magnesium 1.4 L Assessment: POD# 4 s/p exlap lysis of adhesions for SBO Post-op ileus She is mobilizing fluid. Plan: Continue ice chips Increase activity Pulmonary toilet IVF decreased yesterday.
[2018-10-20] MEDS: KCL 10 MEQ/50 ML IVPREMIX* 10 MEQ/50 ML BAG IV SCH ×3 (10:43→13:42)
[2018-10-20] MEDS: D5W NS 0.9% 20Meq KCL 1000 ML* 1,000 ML IV SCH (12:36)
[2018-10-20] MEDS: Acetaminophen TAB* 325 MG PO PRN (16:15)
--- NOTE | 2018-10-20 18:14 | PN ---
Subjective Date of Service: 10/20/18 Interval History: Awake, in bed. flat affect but report her pain is better. ambulating. She ambulated twice today. Her labs reviewed earlier and supplemented her Potassium and magnesium. no events overnight Past Medical History: Unchanged from Admission Objective Active Medications: Acetaminophen (Tylenol Tab*) 325 mg PO Q6H PRN PRN Reason: PAIN OR TEMPERATURE Last Admin: 10/20/18 16:15 Dose: 325 mg Famotidine (Pepcid Iv*) 20 mg IV Q12H [facility] Last Admin: 10/20/18 08:25 Dose: 20 mg Heparin Sodium (Porcine) (Heparin Vial(*)) 5,000 units SUBCUT Q12HR [facility] Last Admin: 10/20/18 08:26 Dose: 5,000 units Hydralazine HCl (Apresoline Iv*) 10 mg IV SLOW PU Q2H PRN PRN Reason: SYSTOLIC BP GREATER THAN: Potassium Chloride/Dextrose (D5w Ns 0.9% 20meq Kcl 1000 Ml*) 1,000 mls @ 50 mls /hr IV PER RATE [facility] Last Admin: 10/20/18 12:36 Dose: 50 mls/hr Labetalol HCl (Trandate Iv*) 20 mg IV PUSH Q2H PRN PRN Reason: BLOOD PRESSURE Morphine Sulfate (Morphine Inj (Syringe))*) 2 mg IV Q1H PRN PRN Reason: PAIN Last Admin: 10/20/18 16:45 Dose: 2 mg Ondansetron HCl (Zofran Inj*) 4 mg IV Q4H PRN PRN Reason: NAUSEA Last Admin: 10/20/18 12:32 Dose: 4 mg Vital Signs - 8 hr 10/20/18 10/20/18 10/20/18 11:38 12:16 12:33 Temperature 98.5 F Pulse Rate 85 Respiratory 16 16 Rate Blood Pressure 139/68 (mmHg) O2 Sat by Pulse 91 94 Oximetry 10/20/18 10/20/18 10/20/18 13:43 15:36 16:17 Temperature 99.5 F Pulse Rate 93 Respiratory 16 16 Rate Blood Pressure 161/73 (mmHg) O2 Sat by Pulse 92 92 Oximetry 10/20/18 16:45 Temperature Pulse Rate Respiratory 18 Rate Blood Pressure (mmHg) O2 Sat by Pulse Oximetry Oxygen Devices in Use Now: None Appearance: awake, alert. no distress Eyes: No Scleral Icterus, - - EOMI Ears/Nose/Mouth/Throat: NL Teeth, Lips, Gums, Mucous Membranes Moist Neck: NL Appearance and Movements; NL JVP, Trachea Midline Respiratory: Symmetrical Chest Expansion and Respiratory Effort, Clear to Auscultation Cardiovascular: NL Sounds; No Murmurs; No JVD, RRR Abdominal: NL Sounds; No Tenderness; No Distention, - - dressing clean intact. mia-incisional tenderness. no rebound. soft. bowel sound present today. Extremities: No Edema Neurological: Alert and Oriented x 3 Result Diagrams: 10/20/18 05:28 10/20/18 05:28 Microbiology and Other Data: Microbiology 10/14/18 11:45 Urine Culture - Final Urine Staphylococcus Lugdenensis Assess/Plan/Problems-Billing Assessment: 88 year old female POD# 4 s/p exlap lysis of adhesions for SBO - Patient Problems (1) SBO (small bowel obstruction) Current Visit: Yes Status: Acute Code(s): K56.609 - UNSP INTESTNL OBST, UNSP TO PARTIAL VERSUS COMPLETE OBST SNOMED Code(s): 499791358 Comment: - S/P lysis of adhesions 10/16/18. NG tube out 10/18, decreased IV fluids 10/18. - Surgery recommended to keep IVF and Activity, ICE chips only - Bowel sounds present today, will follow up recommendation by surgery if she remains NPO may consider reglan to help stimulate her GI motility unless contraindicated by surgery given her recent surgery. (2) HTN (hypertension) Current Visit: Yes Status: Acute Code(s): I10 - ESSENTIAL (PRIMARY) HYPERTENSION SNOMED Code(s): 44064287 Comment: - BP meds on hold, only on PRN labetelol and hydralazine. BP fluctuating. - I will start her on low dose lisinopril 10 mg daily. keep almodipine on hold given her ileus (3) Prediabetes Current Visit: Yes Status: Acute Code(s): R73.03 - PREDIABETES SNOMED Code (s): 893323579 Comment: - A1C 6.1% 10/14/18. - continue with FS glucose bid will add coverage and scale once she start taking po (4) DVT prophylaxis Current Visit: Yes Status: Acute Code(s): RNM1939 - SNOMED Code(s): 376210890 Comment: Heparin SQ
[2018-10-20] MEDS: Lisinopril TAB* 10 MG PO SCH (18:34)
[2018-10-21] MEDS: Morphine INJ* 2 MG/ML 1 ML SYRINGE (TWO MG - NEW SYRINGE VERSION) IV PRN ×5 (00:08→19:56)
[2018-10-21 06:37] LABS: BUN/Creatinine Ratio 9.8 (8-20); EGFR African American 137.4 (>60); EGFR Non-African American 113.5 (>60); Magnesium 1.8 mg/dL (1.9-2.7); Phosphorus 2.8 mg/dL (2.5-5.0); Potassium 3.7 mmol/L (3.5-5.0)
[2018-10-21] MEDS: D5W NS 0.9% 20Meq KCL 1000 ML* 1,000 ML IV SCH (07:49)
[2018-10-21] MEDS: Famotidine IV* 10 MG/ML 2 ML (20 mg) IV SCH ×2 (08:46→22:29)
[2018-10-21] MEDS: Lisinopril TAB* 10 MG PO SCH (08:48)
[2018-10-21] MEDS: Heparin VIAL(*) 5000 UNITS/ML VIAL (FIVE THOUSAND) SUBCUT SCH ×2 (08:49→22:28)
[2018-10-21] MEDS ORDERED: Magnesium Sulfate 1 GM IV* 1 GM/100 ML BAG IV ONE (09:45)
--- NOTE | 2018-10-21 10:35 | PN ---
Progress Note - Progress Note Date of Service: 10/21/18 SOAP: Subjective: Passed some flatus yesterday but still feels a little distended. Incisional pain is her only complaint. Objective: Temp Pulse Resp BP Pulse Ox 98.1 F 88 18 149/71 94 10/21/18 07:32 10/21/18 07:32 10/21/18 08:50 10/21/18 07:32 10/21/18 09:15 Intake & Output 10/19/18 10/20/18 10/21/18 10/22/18 06:59 06:59 06:59 06:59 Intake Total 3030 50 1205 975 Output Total 3325 2600 1300 300 Balance -295 -2550 -95 675 Intake: IV Fluids 2970 1140 955 D5 NS w/20K 2970 936 955 kcl 149 mag 55 Oral 60 50 65 20 Output: NG Tube Drainage Amount 75 Urine 2400 2600 1300 300 Hernandez 850 Other: # Bowel Movements 0 0 PEX: Comfortable in chair Abd is soft and remains slightly distended. Few bowel sounds are present. Incision CDI Assessment: POD# 5 s/p exlap for lysis of adhesions for SBO Post-op ileus-passed small amount of flatus Plan: Sips of clear liquids Continue current management
[2018-10-21] MEDS: KCL 10 MEQ/50 ML IVPREMIX* 10 MEQ/50 ML BAG IV SCH ×2 (11:27→13:59)
--- NOTE | 2018-10-21 17:56 | PN ---
Subjective Date of Service: 10/21/18 Interval History: Patient seen today, no acute events. on Sips of clears today. Passing flatus and ambulating Past Medical History: Unchanged from Admission Objective Active Medications: Acetaminophen (Tylenol Tab*) 325 mg PO Q6H PRN PRN Reason: PAIN OR TEMPERATURE Last Admin: 10/20/18 16:15 Dose: 325 mg Famotidine (Pepcid Iv*) 20 mg IV Q12H [facility] Last Admin: 10/21/18 08:46 Dose: 20 mg Heparin Sodium (Porcine) (Heparin Vial(*)) 5,000 units SUBCUT Q12HR [facility] Last Admin: 10/21/18 08:49 Dose: 5,000 units Hydralazine HCl (Apresoline Iv*) 10 mg IV SLOW PU Q2H PRN PRN Reason: SYSTOLIC BP GREATER THAN: Potassium Chloride/Dextrose (D5w Ns 0.9% 20meq Kcl 1000 Ml*) 1,000 mls @ 50 mls /hr IV PER RATE [facility] Last Admin: 10/21/18 07:49 Dose: 50 mls/hr Labetalol HCl (Trandate Iv*) 20 mg IV PUSH Q2H PRN PRN Reason: BLOOD PRESSURE Lisinopril (Prinivil Tab*) 10 mg PO DAILY [facility] Last Admin: 10/21/18 08:48 Dose: 10 mg Morphine Sulfate (Morphine Inj (Syringe))*) 2 mg IV Q1H PRN PRN Reason: PAIN Last Admin: 10/21/18 15:13 Dose: 2 mg Ondansetron HCl (Zofran Inj*) 4 mg IV Q4H PRN PRN Reason: NAUSEA Last Admin: 10/20/18 12:32 Dose: 4 mg Vital Signs - 8 hr 10/21/18 10/21/18 10/21/18 11:41 15:13 15:46 Temperature 98.7 F 99.3 F Pulse Rate 84 93 Respiratory 18 16 16 Rate Blood Pressure 140/63 146/74 (mmHg) O2 Sat by Pulse 97 95 Oximetry 10/21/18 16:35 Temperature Pulse Rate Respiratory 18 Rate Blood Pressure (mmHg) O2 Sat by Pulse Oximetry Oxygen Devices in Use Now: Nasal Cannula Appearance: awake, alert no acute distress Eyes: No Scleral Icterus Ears/Nose/Mouth/Throat: NL Teeth, Lips, Gums, Mucous Membranes Moist Neck: NL Appearance and Movements; NL JVP, Trachea Midline Respiratory: Symmetrical Chest Expansion and Respiratory Effort Cardiovascular: NL Sounds; No Murmurs; No JVD, RRR Abdominal: - - soft, bowel sound present today Result Diagrams: 10/20/18 05:28 10/21/18 06:08 Microbiology and Other Data: Microbiology 10/14/18 11:45 Urine Culture - Final Urine Staphylococcus Lugdenensis Assess/Plan/Problems-Billing Assessment: 88 year old female POD# 5 s/p exlap lysis of adhesions for SBO - Patient Problems (1) SBO (small bowel obstruction) Current Visit: Yes Status: Acute Code(s): K56.609 - UNSP INTESTNL OBST, UNSP TO PARTIAL VERSUS COMPLETE OBST SNOMED Code(s): 860984206 Comment: - S/P lysis of adhesions 10/16/18. NG tube out 10/18, decreased IV fluids 10/18. - Surgery recommended to keep IVF and Activity, started ICE chips sip of clear today 10/11/18 - Bowel sounds present today, (2) HTN (hypertension) Current Visit: Yes Status: Acute Code(s): I10 - ESSENTIAL (PRIMARY) HYPERTENSION SNOMED Code(s): 97312200 Comment: - on PRN labetelol and hydralazine. BP fluctuating. - I did start her on low dose lisinopril 10 mg daily. keep almodipine on hold given her ileus (3) Prediabetes Current Visit: Yes Status: Acute Code(s): R73.03 - PREDIABETES SNOMED Code (s): 783778386 Comment: - A1C 6.1% 10/14/18. - continue with FS glucose bid will add coverage and scale once she start taking po (4) DVT prophylaxis Current Visit: Yes Status: Acute Code(s): FDM1917 - SNOMED Code(s): 448935908 Comment: Heparin SQ
[2018-10-22] MEDS: Morphine INJ* 2 MG/ML 1 ML SYRINGE (TWO MG - NEW SYRINGE VERSION) IV PRN ×3 (01:25→21:38)
[2018-10-22] MEDS: Ondansetron INJ* 2 MG/ML VIAL IV PRN (07:03)
[2018-10-22 07:09] LABS: BUN/Creatinine Ratio 9.1 (8-20); Calcium 8.4 mg/dL (8.6-10.3); EGFR African American 125.9 (>60); EGFR Non-African American 104.1 (>60); Magnesium 1.9 mg/dL (1.9-2.7); Phosphorus 3.1 mg/dL (2.5-5.0); Potassium 3.7 mmol/L (3.5-5.0)
[2018-10-22] MEDS: Lisinopril TAB* 10 MG PO SCH (08:17)
[2018-10-22] MEDS: Acetaminophen TAB* 325 MG PO PRN ×2 (08:17→21:38)
[2018-10-22] MEDS: D5W NS 0.9% 20Meq KCL 1000 ML* 1,000 ML IV SCH (08:20)
[2018-10-22] MEDS: Famotidine IV* 10 MG/ML 2 ML (20 mg) IV SCH ×2 (08:24→21:42)
[2018-10-22] MEDS: Heparin VIAL(*) 5000 UNITS/ML VIAL (FIVE THOUSAND) SUBCUT SCH ×2 (08:26→21:47)
--- NOTE | 2018-10-22 10:21 | PN ---
Progress Note - Progress Note Date of Service: 10/22/18 SOAP: Subjective: Passing some more flatus Minimal incisional pain Slept poorly last night Objective: Temp Pulse Resp BP Pulse Ox 98.0 F 76 16 153/72 92 10/22/18 07:29 10/22/18 07:29 10/22/18 08:30 10/22/18 07:29 10/22/18 08:30 Intake & Output 10/20/18 10/21/18 10/22/18 10/23/18 06:59 06:59 06:59 06:59 Intake Total 50 1205 1215 869 Output Total 2600 1300 2250 300 Balance -2550 -95 -1035 569 Intake: IV Fluids 1140 955 869 D5 NS w/20K 936 955 869 kcl 149 mag 55 Oral 50 65 260 Output: Urine 2600 1300 2250 300 Other: # Bowel Movements 0 0 PEX: Comfortable Lungs are clear Abd is soft and slightly distended. Bowel sounds are present and not high pitched or tinkling. Incision is CDI Laboratory Results - last 24 hr 10/22/18 06:23 Sodium 136 Potassium 3.7 Chloride 102 Carbon Dioxide 29 Anion Gap 5 BUN 5 L Creatinine 0.55 Est GFR ( Amer) 125.9 Est GFR (Non-Af Amer) 104.1 BUN/Creatinine Ratio 9.1 Glucose 129 H Calcium 8.4 L Phosphorus 3.1 Magnesium 1.9 Assessment: POD# 6 s/p exlap for SBO-lysis of adhesions for internal hernia Post-op Ileus-improving Plan: Full liquids Continue present care Discussed with patient and her son at bedside. SACMA to cover for me through until Thursday11/01/18.
--- NOTE | 2018-10-22 16:37 | PN ---
Subjective Date of Service: 10/22/18 Interval History: Patient seen today, doing well. complains of headache, and fatigue. No acute events. ambulating. denies appetite. no diarrhea no fever or chills Past Medical History: Unchanged from Admission Objective Active Medications: Acetaminophen (Tylenol Tab*) 325 mg PO Q6H PRN PRN Reason: PAIN OR TEMPERATURE Last Admin: 10/22/18 08:17 Dose: 325 mg Famotidine (Pepcid Iv*) 20 mg IV Q12H [facility] Last Admin: 10/22/18 08:24 Dose: 20 mg Heparin Sodium (Porcine) (Heparin Vial(*)) 5,000 units SUBCUT Q12HR [facility] Last Admin: 10/22/18 08:26 Dose: 5,000 units Hydralazine HCl (Apresoline Iv*) 10 mg IV SLOW PU Q2H PRN PRN Reason: SYSTOLIC BP GREATER THAN: Potassium Chloride/Dextrose (D5w Ns 0.9% 20meq Kcl 1000 Ml*) 1,000 mls @ 50 mls /hr IV PER RATE [facility] Last Admin: 10/22/18 08:20 Dose: 50 mls/hr Labetalol HCl (Trandate Iv*) 20 mg IV PUSH Q2H PRN PRN Reason: BLOOD PRESSURE Lisinopril (Prinivil Tab*) 10 mg PO DAILY [facility] Last Admin: 10/22/18 08:17 Dose: 10 mg Morphine Sulfate (Morphine Inj (Syringe))*) 2 mg IV Q1H PRN PRN Reason: PAIN Last Admin: 10/22/18 15:13 Dose: 2 mg Ondansetron HCl (Zofran Inj*) 4 mg IV Q4H PRN PRN Reason: NAUSEA Last Admin: 10/22/18 07:03 Dose: 4 mg Vital Signs - 8 hr 10/22/18 10/22/18 10/22/18 11:40 15:13 15:42 Temperature 97.7 F 98.2 F Pulse Rate 88 86 Respiratory 16 16 14 Rate Blood Pressure 149/78 139/63 (mmHg) O2 Sat by Pulse 96 94 Oximetry Oxygen Devices in Use Now: None Appearance: Awake, alert, no acute distress. no fever or chills Eyes: No Scleral Icterus, - - EOMI Ears/Nose/Mouth/Throat: NL Teeth, Lips, Gums, Mucous Membranes Moist Neck: NL Appearance and Movements; NL JVP, Trachea Midline Respiratory: Symmetrical Chest Expansion and Respiratory Effort, Clear to Auscultation Cardiovascular: NL Sounds; No Murmurs; No JVD Abdominal: NL Sounds; No Tenderness; No Distention Extremities: No Edema Neurological: Alert and Oriented x 3 Result Diagrams: 10/20/18 05:28 10/22/18 06:23 Microbiology and Other Data: Microbiology 10/14/18 11:45 Urine Culture - Final Urine Staphylococcus Lugdenensis Assess/Plan/Problems-Billing Assessment: 88 year old female POD# 5 s/p exlap lysis of adhesions for SBO - Patient Problems (1) SBO (small bowel obstruction) Current Visit: Yes Status: Acute Code(s): K56.609 - UNSP INTESTNL OBST, UNSP TO PARTIAL VERSUS COMPLETE OBST SNOMED Code(s): 746197150 Comment: - S/P lysis of adhesions 10/16/18. NG tube out 10/18, decreased IV fluids 10/18. - Surgery recommended to keep IVF and Activity, started sip of clear - Bowel sounds present today, (2) HTN (hypertension) Current Visit: Yes Status: Acute Code(s): I10 - ESSENTIAL (PRIMARY) HYPERTENSION SNOMED Code(s): 55370534 Comment: - on PRN labetelol and hydralazine. BP fluctuating. - I did start her on low dose lisinopril 10 mg daily. keep almodipine on hold given her ileus (3) Prediabetes Current Visit: Yes Status: Acute Code(s): R73.03 - PREDIABETES SNOMED Code (s): 090999356 Comment: - A1C 6.1% 10/14/18. - continue with FS glucose bid will add coverage and scale once she start taking po (4) DVT prophylaxis Current Visit: Yes Status: Acute Code(s): RGN3688 - SNOMED Code(s): 396108246 Comment: Heparin SQ
[2018-10-23] MEDS: Ondansetron INJ* 2 MG/ML VIAL IV PRN (06:15)
[2018-10-23] MEDS: D5W NS 0.9% 20Meq KCL 1000 ML* 1,000 ML IV SCH (06:47)
[2018-10-23] MEDS: Acetaminophen TAB* 325 MG PO PRN ×2 (07:20→16:17)
[2018-10-23] MEDS: Famotidine IV* 10 MG/ML 2 ML (20 mg) IV SCH ×2 (08:32→20:54)
[2018-10-23] MEDS: Heparin VIAL(*) 5000 UNITS/ML VIAL (FIVE THOUSAND) SUBCUT SCH ×2 (08:32→20:52)
[2018-10-23] MEDS: Lisinopril TAB* 10 MG PO SCH (08:33)
--- NOTE | 2018-10-23 09:33 | PN ---
Progress Note - Progress Note Date of Service: 10/23/18 Note: S/P SBO Afeb, VS OK Voiding No pain Not taking much PO, states no appetite No N/V Abd soft, slight distension, nontender, quiet Await increased GI function
[2018-10-23] MEDS: Morphine INJ* 2 MG/ML 1 ML SYRINGE (TWO MG - NEW SYRINGE VERSION) IV PRN ×2 (11:10→16:18)
--- NOTE | 2018-10-23 11:37 | PN ---
Subjective Date of Service: 10/23/18 Interval History: Patient seen,she remains with poor appetite. Not taking much PO, surgery on the case and no acute interventions. Awaiting GI functions to improve. currently on full liquid. Past Medical History: Unchanged from Admission Objective Active Medications: Acetaminophen (Tylenol Tab*) 325 mg PO Q6H PRN PRN Reason: PAIN OR TEMPERATURE Last Admin: 10/23/18 07:20 Dose: 325 mg Famotidine (Pepcid Iv*) 20 mg IV Q12H [facility] Last Admin: 10/23/18 08:32 Dose: 20 mg Heparin Sodium (Porcine) (Heparin Vial(*)) 5,000 units SUBCUT Q12HR [facility] Last Admin: 10/23/18 08:32 Dose: 5,000 units Hydralazine HCl (Apresoline Iv*) 10 mg IV SLOW PU Q2H PRN PRN Reason: SYSTOLIC BP GREATER THAN: Potassium Chloride/Dextrose (D5w Ns 0.9% 20meq Kcl 1000 Ml*) 1,000 mls @ 50 mls /hr IV PER RATE [facility] Last Admin: 10/23/18 06:47 Dose: 50 mls/hr Labetalol HCl (Trandate Iv*) 20 mg IV PUSH Q2H PRN PRN Reason: BLOOD PRESSURE Lisinopril (Prinivil Tab*) 10 mg PO DAILY [facility] Last Admin: 10/23/18 08:33 Dose: 10 mg Morphine Sulfate (Morphine Inj (Syringe))*) 2 mg IV Q1H PRN PRN Reason: PAIN Last Admin: 10/23/18 11:10 Dose: 2 mg Ondansetron HCl (Zofran Inj*) 4 mg IV Q4H PRN PRN Reason: NAUSEA Last Admin: 10/23/18 06:15 Dose: 4 mg Vital Signs - 8 hr 10/23/18 10/23/18 10/23/18 07:12 07:30 11:10 Temperature 98.7 F Pulse Rate 72 Respiratory 14 14 18 Rate Blood Pressure 152/68 (mmHg) O2 Sat by Pulse 94 94 Oximetry Oxygen Devices in Use Now: None Appearance: awake, alert. no distress, Flat affect Eyes: No Scleral Icterus, - - EOMI Ears/Nose/Mouth/Throat: NL Teeth, Lips, Gums, Mucous Membranes Moist Neck: NL Appearance and Movements; NL JVP, Trachea Midline Respiratory: Symmetrical Chest Expansion and Respiratory Effort, Clear to Auscultation Cardiovascular: NL Sounds; No Murmurs; No JVD, RRR Abdominal: - - Bowel sounds present. expected perisurgical wound tenderness. no rebound or guarding Lymphatic: No Cervical Adenopathy Extremities: No Edema Skin: No Rash or Ulcers Neurological: Alert and Oriented x 3, NL Muscle Strength and Tone Result Diagrams: 10/20/18 05:28 10/22/18 06:23 Microbiology and Other Data: Microbiology 10/14/18 11:45 Urine Culture - Final Urine Staphylococcus Lugdenensis Assess/Plan/Problems-Billing Assessment: 88 year old female POD# 5 s/p exlap lysis of adhesions for SBO - Patient Problems (1) SBO (small bowel obstruction) Current Visit: Yes Status: Acute Code(s): K56.609 - UNSP INTESTNL OBST, UNSP TO PARTIAL VERSUS COMPLETE OBST SNOMED Code(s): 206730331 Comment: - S/P lysis of adhesions 10/16/18. NG tube out 10/18, decreased IV fluids 10/18. - Surgery recommended to keep IVF @ 50 ml for bow and increase , started sip of clear now on full liquid diet - Bowel sounds present today, - follow up with surgery recommendations. no acute medical issues (2) HTN (hypertension) Current Visit: Yes Status: Acute Code(s): I10 - ESSENTIAL (PRIMARY) HYPERTENSION SNOMED Code(s): 95496921 Comment: - on PRN labetelol and hydralazine. BP fluctuating. - I did start her on low dose lisinopril 10 mg daily. keep almodipine on hold given her slow GI functions (3) Prediabetes Current Visit: Yes Status: Acute Code(s): R73.03 - PREDIABETES SNOMED Code (s): 403642979 Comment: - A1C 6.1% 10/14/18. - continue with FS glucose bid will add coverage and scale once she start taking po (4) DVT prophylaxis Current Visit: Yes Status: Acute Code(s): [id number] - SNOMED Code(s): 149016981 Comment: Heparin SQ
[2018-10-24] MEDS: Morphine INJ* 2 MG/ML 1 ML SYRINGE (TWO MG - NEW SYRINGE VERSION) IV PRN ×2 (00:48→03:17)
[2018-10-24] MEDS: D5W NS 0.9% 20Meq KCL 1000 ML* 1,000 ML IV SCH (02:58)
[2018-10-24 05:56] LABS: ABS Basophils 0 10^3/ul (0-0.2); ABS Eosinophils 0.1 10^3/ul (0-0.6); ABS Lymphocytes 0.9 10^3/ul (1.0-4.8); ABS Monocytes 0.5 10^3/ul (0-0.8); ABS Neutrophils 3.3 10^3/ul (1.5-7.7); ABS Nucleated RBC 0 10^3/ul; Eosinophil % 2.4 %; Hematocrit 31 % (33-41); Hemoglobin 10.8 g/dL (12.0-16.0); Lymphocyte % 18.2 %; Mean Corpuscular HGB Conc 34 g/dL (31-36); Mean Corpuscular Hemoglobin 31 pg (27-31); Mean Corpuscular Volume 90 fL (80-97); Mean Platelet Volume 7.1 fL (7.4-10.4); Nucleated Red Blood Cells % 0; Platelet Count 357 10^3/uL (150-450); Red Cell Distribution Width 13 % (10.5-15); White Blood Count 4.8 10^3/uL (3.5-10.8)
[2018-10-24 06:09] LABS: BUN/Creatinine Ratio 12.3 (8-20); Calcium 8.2 mg/dL (8.6-10.3); EGFR African American 120.8 (>60); EGFR Non-African American 99.9 (>60); Magnesium 1.6 mg/dL (1.9-2.7); Phosphorus 3.6 mg/dL (2.5-5.0)
[2018-10-24] MEDS: Acetaminophen TAB* 325 MG PO PRN ×2 (07:18→15:55)
[2018-10-24] MEDS: Famotidine IV* 10 MG/ML 2 ML (20 mg) IV SCH ×2 (09:15→21:45)
[2018-10-24] MEDS: Lisinopril TAB* 10 MG PO SCH (09:15)
[2018-10-24] MEDS: Heparin VIAL(*) 5000 UNITS/ML VIAL (FIVE THOUSAND) SUBCUT SCH ×2 (09:15→21:45)
[2018-10-24] MEDS: Magnesium Oxide TAB* 400 MG PO SCH ×2 (09:15→21:45)
--- NOTE | 2018-10-24 10:31 | PN ---
Progress Note - Progress Note Date of Service: 10/24/18 Note: S/P SBO Afeb, VS noted Voiding Uriel po's, though not much appetite Seems tired today No pain Abd benign Await increase po intake D/C morphine, change to percocet
--- NOTE | 2018-10-24 11:58 | PN ---
Subjective Date of Service: 10/24/18 Interval History: Patient seen still very flat affect, her appetite is poor. bowel sounds present but seems to be depressed which may be contributing to her poor appetite Past Medical History: Unchanged from Admission Objective Active Medications: Acetaminophen (Tylenol Tab*) 325 mg PO Q6H PRN PRN Reason: PAIN OR TEMPERATURE Last Admin: 10/24/18 07:18 Dose: 325 mg Famotidine (Pepcid Iv*) 20 mg IV Q12H [facility] Last Admin: 10/24/18 09:15 Dose: 20 mg Heparin Sodium (Porcine) (Heparin Vial(*)) 5,000 units SUBCUT Q12HR [facility] Last Admin: 10/24/18 09:15 Dose: 5,000 units Hydralazine HCl (Apresoline Iv*) 10 mg IV SLOW PU Q2H PRN PRN Reason: SYSTOLIC BP GREATER THAN: Potassium Chloride/Dextrose (D5w Ns 0.9% 20meq Kcl 1000 Ml*) 1,000 mls @ 50 mls /hr IV PER RATE [facility] Last Admin: 10/24/18 02:58 Dose: 50 mls/hr Labetalol HCl (Trandate Iv*) 20 mg IV PUSH Q2H PRN PRN Reason: BLOOD PRESSURE Lisinopril (Prinivil Tab*) 10 mg PO DAILY [facility] Last Admin: 10/24/18 09:15 Dose: 10 mg Magnesium Oxide (Magox 400 Tab*) 400 mg PO BID [facility] Last Admin: 10/24/18 09:15 Dose: 400 mg Ondansetron HCl (Zofran Inj*) 4 mg IV Q4H PRN PRN Reason: NAUSEA Last Admin: 10/23/18 06:15 Dose: 4 mg Oxycodone/Acetaminophen (Percocet 5/325 Tab*) 1 tab PO Q6H PRN PRN Reason: PAIN Vital Signs - 8 hr 10/24/18 10/24/18 10/24/18 04:15 07:55 08:00 Temperature 97.7 F Pulse Rate 86 Respiratory 14 16 16 Rate Blood Pressure 141/77 (mmHg) O2 Sat by Pulse 95 95 Oximetry Oxygen Devices in Use Now: None Appearance: awake, flat affect Eyes: No Scleral Icterus, - - EOMI Ears/Nose/Mouth/Throat: NL Teeth, Lips, Gums, Mucous Membranes Moist Neck: NL Appearance and Movements; NL JVP, Trachea Midline Respiratory: Symmetrical Chest Expansion and Respiratory Effort Cardiovascular: NL Sounds; No Murmurs; No JVD Abdominal: NL Sounds; No Tenderness; No Distention, - - Bowel sounds present. expected perisurgical wound tenderness. no rebound or guarding Extremities: No Edema Neurological: Alert and Oriented x 3 Result Diagrams: 10/24/18 05:45 10/24/18 05:45 Microbiology and Other Data: Microbiology 10/14/18 11:45 Urine Culture - Final Urine Staphylococcus Lugdenensis Assess/Plan/Problems-Billing Assessment: 88 year old female POD# 8 s/p exlap lysis of adhesions for SBO - Patient Problems (1) SBO (small bowel obstruction) Current Visit: Yes Status: Acute Code(s): K56.609 - UNSP INTESTNL OBST, UNSP TO PARTIAL VERSUS COMPLETE OBST SNOMED Code(s): 396502642 Comment: - S/P lysis of adhesions 10/16/18 pod Day # 8. NG tube out 4, decreased IV fluids 4. - Surgery recommended to keep IVF @ 50 ml for bow and increase , started sip of clear now on full liquid diet - Bowel sounds present today, - follow up with surgery recommendations. no acute medical issues! Potential need to start reglan to stimulate GI motility if ok with surgery - I will place her on zoloft as she does have flat affect and depression could be playing role in her appetite (2) HTN (hypertension) Current Visit: Yes Status: Acute Code(s): I10 - ESSENTIAL (PRIMARY) HYPERTENSION SNOMED Code(s): 59208108 Comment: - on PRN labetelol and hydralazine. BP fluctuating. - I did start her on low dose lisinopril 10 mg daily. keep almodipine on hold given her slow GI functions (3) Prediabetes Current Visit: Yes Status: Acute Code(s): R73.03 - PREDIABETES SNOMED Code (s): 424579043 Comment: - A1C 6.1% 10/14/18. - continue with FS glucose bid will add coverage and scale once she start taking po (4) DVT prophylaxis Current Visit: Yes Status: Acute Code(s): RZR1175 - SNOMED Code(s): 703790719 Comment: Heparin SQ
[2018-10-24] MEDS: Sertraline* 25 MG TAB PO SCH (14:40)
[2018-10-24] MEDS: oxyCODONE/Acetamin 5/325 MG* TAB PO PRN (14:40)
[2018-10-24] MEDS: Ondansetron INJ* 2 MG/ML VIAL IV PRN (19:39)
[2018-10-25] MEDS: Ondansetron INJ* 2 MG/ML VIAL IV PRN ×3 (00:01→08:40)
[2018-10-25] MEDS: oxyCODONE/Acetamin 5/325 MG* TAB PO PRN ×2 (00:01→06:38)
[2018-10-25] MEDS: D5W NS 0.9% 20Meq KCL 1000 ML* 1,000 ML IV SCH ×2 (03:10→22:18)
[2018-10-25] MEDS: Famotidine IV* 10 MG/ML 2 ML (20 mg) IV SCH ×2 (08:32→21:06)
[2018-10-25] MEDS: Heparin VIAL(*) 5000 UNITS/ML VIAL (FIVE THOUSAND) SUBCUT SCH ×2 (08:33→21:06)
[2018-10-25] MEDS: Sertraline* 25 MG TAB PO SCH (08:34)
[2018-10-25] MEDS: Lisinopril TAB* 10 MG PO SCH (08:34)
[2018-10-25] MEDS: Magnesium Oxide TAB* 400 MG PO SCH ×2 (08:34→21:06)
--- NOTE | 2018-10-25 11:52 | PN ---
Progress Note - Progress Note Date of Service: 10/25/18 SOAP: Subjective:pod#9 s/p ex lap,keke,internal hernia c/o feeling tired,no n/v;passing flatus;states she had diarrhea for the past several days,none today;doesn't like full liq diet [] Objective: Vital Signs Temp 97.7 F 10/25/18 07:40 Pulse 76 10/25/18 07:40 Resp 19 10/25/18 09:36 BP 159/69 10/25/18 07:40 Pulse Ox 94 10/25/18 07:40 Intake & Output 10/24/18 10/25/18 10/25/18 18:59 06:59 18:59 Intake Total 150 1270 Output Total 500 450 Balance -350 820 Intake: IV Fluids 990 D5 NS w/20K 990 Oral 150 280 Output: Urine 500 450 Other: Estimated Void Large Medium # Bowel Movements 1 0 Estimated Stool Amount Large Medium # Voids 1 lungs:clear bilat;heart:RRR;abd:+bs,soft,mild distention;midline incision intact with arun,C/D/I,no erythema,no infection;ext:nontender calves [] Assessment:needs encouragement to get OOB and walk and to eat [] Plan:advance to soft diet to try to stimulate appetite,pt son at bedside and will encourage OOB []
[2018-10-25] MEDS: Acetaminophen TAB* 325 MG PO PRN ×2 (15:44→22:05)
--- NOTE | 2018-10-25 18:20 | PN ---
Subjective Date of Service: 10/25/18 Interval History: Patient has continued abdominal pain, nausea, diarrhea. She has been tolerating clears. She did walk in [place] a bit today. Surgery following, is post-op day 9 after CHAYITO. Family History: Unchanged from Admission Social History: Unchanged from Admission Past Medical History: Unchanged from Admission Objective Active Medications: Acetaminophen (Tylenol Tab*) 650 mg PO Q6H PRN PRN Reason: PAIN or FEVER Last Admin: 10/25/18 15:44 Dose: 650 mg Famotidine (Pepcid Iv*) 20 mg IV Q12H [facility] Last Admin: 10/25/18 08:32 Dose: 20 mg Heparin Sodium (Porcine) (Heparin Vial(*)) 5,000 units SUBCUT Q12HR [facility] Last Admin: 10/25/18 08:33 Dose: 5,000 units Hydralazine HCl (Apresoline Iv*) 10 mg IV SLOW PU Q2H PRN PRN Reason: SYSTOLIC BP GREATER THAN: Last Admin: 10/25/18 00:45 Dose: 10 mg Potassium Chloride/Dextrose (D5w Ns 0.9% 20meq Kcl 1000 Ml*) 1,000 mls @ 50 mls /hr IV PER RATE [facility] Last Admin: 10/25/18 03:10 Dose: 50 mls/hr Labetalol HCl (Trandate Iv*) 20 mg IV PUSH Q2H PRN PRN Reason: BLOOD PRESSURE Lisinopril (Prinivil Tab*) 10 mg PO DAILY [facility] Last Admin: 10/25/18 08:34 Dose: 10 mg Magnesium Oxide (Magox 400 Tab*) 400 mg PO BID [facility] Last Admin: 10/25/18 08:34 Dose: 400 mg Ondansetron HCl (Zofran Inj*) 4 mg IV Q4H PRN PRN Reason: NAUSEA Last Admin: 10/25/18 08:40 Dose: 4 mg Oxycodone/Acetaminophen (Percocet 5/325 Tab*) 1 tab PO Q6H PRN PRN Reason: PAIN Last Admin: 10/25/18 06:38 Dose: 1 tab Sertraline HCl (Zoloft*) 25 mg PO DAILY [facility] Last Admin: 10/25/18 08:34 Dose: 25 mg Vital Signs - 8 hr 04/15/19 04/15/19 04/15/19 11:41 15:17 16:00 Temperature 36.4 C 37.2 C Pulse Rate 81 93 Respiratory 16 16 Rate Blood Pressure 159/67 120/70 (mmHg) O2 Sat by Pulse 94 96 96 Oximetry Oxygen Devices in Use Now: None Appearance: alert, fatigued appearance Ears/Nose/Mouth/Throat: Clear Oropharnyx Neck: No Thyroid Enlargement, Masses Respiratory: Clear to Auscultation Cardiovascular: NL Sounds; No Murmurs; No JVD Abdominal: NL Sounds; No Tenderness; No Distention, - - subjective tenderness Neurological: Alert and Oriented x 3 Lines/Tubes/Other Access: Clean, Dry and Intact Peripheral IV Nutrition: Taking PO's Result Diagrams: 10/24/18 05:45 10/24/18 05:45 Additional Lab and Data: Laboratory Tests 10/24/18 05:45 Magnesium 1.6 L Microbiology and Other Data: Microbiology 10/14/18 11:45 Urine Culture - Final Urine Staphylococcus Lugdenensis Assess/Plan/Problems-Billing Assessment: 88 year old female POD# 8 s/p exlap lysis of adhesions for SBO - Patient Problems (1) SBO (small bowel obstruction) Current Visit: Yes Status: Acute Priority: High Code(s): K56.609 - UNSP INTESTNL OBST, UNSP TO PARTIAL VERSUS COMPLETE OBST SNOMED Code(s): 059651478 Comment: - S/P lysis of adhesions 10/16/18 pod Day # 9. NG tube out 4. - Surgery recommended to keep IVF @ 50 ml for bow and increase , started sip of clear now on full liquid diet - If diarrhea continues tomorrow, will order C diff assay (2) HTN (hypertension) Current Visit: Yes Status: Acute Priority: Medium Code(s): I10 - ESSENTIAL (PRIMARY) HYPERTENSION SNOMED Code(s): 44546231 Comment: - tolerating lisinopril 10 mg daily - almodipine on hold given her slow GI functions (3) Depression Current Visit: Yes Status: Acute Priority: Medium Code(s): F32.9 - MAJOR DEPRESSIVE DISORDER, SINGLE EPISODE, UNSPECIFIED SNOMED Code(s): 77942825 Comment: -started on sertraline over weekend due to low energy, flat affect (4) DVT prophylaxis Current Visit: Yes Status: Acute Priority: Low Code(s): IRS0612 - SNOMED Code(s): 327351529 Comment: Heparin SQ Status and Disposition: inpatient
[2018-10-26] MEDS: Acetaminophen TAB* 325 MG PO PRN ×2 (04:29→10:55)
[2018-10-26] MEDS: Famotidine IV* 10 MG/ML 2 ML (20 mg) IV SCH ×2 (08:50→20:37)
[2018-10-26] MEDS: Heparin VIAL(*) 5000 UNITS/ML VIAL (FIVE THOUSAND) SUBCUT SCH ×2 (08:50→20:38)
[2018-10-26] MEDS: Magnesium Oxide TAB* 400 MG PO SCH ×2 (08:51→20:36)
[2018-10-26] MEDS: Lisinopril TAB* 10 MG PO SCH (08:51)
[2018-10-26] MEDS: Sertraline* 25 MG TAB PO SCH (08:51)
--- NOTE | 2018-10-26 14:18 | PN ---
Progress Note - Progress Note Date of Service: 10/26/18 SOAP: Subjective:POD#10 s/p ex lap,CHAYITO []feels better today,tolerating soft diet,no n/v,stools semi formed,no persistent diarrhea;walked in [place] with assist Objective: Vital Signs Temp 98.6 F 10/26/18 11:08 Pulse 77 10/26/18 11:08 Resp 16 10/26/18 11:08 BP 175/81 10/26/18 11:08 Pulse Ox 95 10/26/18 11:08 Intake & Output 10/25/18 10/26/18 10/26/18 18:59 06:59 18:59 Intake Total 170 1701 230 Output Total 0 800 800 Balance 170 901 -570 Intake: IV Fluids 961 D5 NS w/20K 961 Oral 170 740 230 Output: Urine 0 800 800 Other: Estimated Void Medium Medium Date of Last Bowel 10/25/18 Movement # Bowel Movements 1 1 1 Estimated Stool Amount Small Small Small # Voids 2 lungs:clear bilat;heart:RRR;abd:+bs,soft,less bloated;minimal tenderness; midline incision well healed,no infection,arun intact;ext:nontender calves [] Assessment:much improved today [] Plan:hep lock IV;d/c Percocet(contributes to confusion);use Tylenol for pain; will remove arun;Pt states she will be staying with her children for a few days after discharge before she goes to her own home at [facility];possible discharge tomorrow or . []
[2018-10-26] MEDS ORDERED: Magnesium Sulfate 2 GM IV* 2 GM/50 ML BAG IVPB ONE (18:30)
--- NOTE | 2018-10-26 18:44 | PN ---
Subjective Date of Service: 10/26/18 Interval History: Patient doing a bit better today. She has walked in liriano. Abdo discomfort present, mild. No more diarrhea, stool nearly formed. Winton removed today. Family History: Unchanged from Admission Social History: Unchanged from Admission Past Medical History: Unchanged from Admission Objective Active Medications: Acetaminophen (Tylenol Tab*) 650 mg PO Q6H PRN PRN Reason: PAIN or FEVER Last Admin: 10/26/18 10:55 Dose: 650 mg Famotidine (Pepcid Iv*) 20 mg IV Q12H [facility] Last Admin: 10/26/18 08:50 Dose: 20 mg Heparin Sodium (Porcine) (Heparin Vial(*)) 5,000 units SUBCUT Q12HR [facility] Last Admin: 10/26/18 08:50 Dose: 5,000 units Hydralazine HCl (Apresoline Iv*) 10 mg IV SLOW PU Q2H PRN PRN Reason: SYSTOLIC BP GREATER THAN: Last Admin: 10/25/18 00:45 Dose: 10 mg Potassium Chloride/Dextrose (D5w Ns 0.9% 20meq Kcl 1000 Ml*) 1,000 mls @ 50 mls /hr IV PER RATE [facility] Last Admin: 10/25/18 22:18 Dose: 50 mls/hr Magnesium Sulfate (Magnesium Sulfate 2 Gm Iv*) 2 gm in 50 mls @ 50 mls/hr IVPB ONCE ONE Stop: 10/26/18 19:29 Last Admin: 10/26/18 18:27 Dose: 50 mls/hr Labetalol HCl (Trandate Iv*) 20 mg IV PUSH Q2H PRN PRN Reason: BLOOD PRESSURE Lisinopril (Prinivil Tab*) 10 mg PO DAILY [facility] Last Admin: 10/26/18 08:51 Dose: 10 mg Magnesium Oxide (Magox 400 Tab*) 400 mg PO BID [facility] Last Admin: 10/26/18 08:51 Dose: 400 mg Ondansetron HCl (Zofran Inj*) 4 mg IV Q4H PRN PRN Reason: NAUSEA Last Admin: 10/25/18 08:40 Dose: 4 mg Sertraline HCl (Zoloft*) 25 mg PO DAILY [facility] Last Admin: 10/26/18 08:51 Dose: 25 mg Vital Signs - 8 hr 10/26/18 10/26/18 10/26/18 11:08 15:16 15:18 Temperature 37.0 C 36.8 C 36.8 C Pulse Rate 77 80 80 Respiratory 16 16 16 Rate Blood Pressure 175/81 170/83 170/83 (mmHg) O2 Sat by Pulse 95 96 96 Oximetry Oxygen Devices in Use Now: None Appearance: alert, frail Ears/Nose/Mouth/Throat: Clear Oropharnyx Neck: No Thyroid Enlargement, Masses Respiratory: Symmetrical Chest Expansion and Respiratory Effort Cardiovascular: NL Sounds; No Murmurs; No JVD Abdominal: NL Sounds; No Tenderness; No Distention, No Hepatosplenomegaly Neurological: Alert and Oriented x 3 Lines/Tubes/Other Access: Clean, Dry and Intact Peripheral IV Nutrition: Taking PO's Result Diagrams: 10/24/18 05:45 10/24/18 05:45 Additional Lab and Data: Laboratory Tests 10/25/18 10/26/18 10/26/18 22:07 06:32 09:51 POC Glucose (mg/dL) 169 H 141 H Magnesium 1.6 L Assess/Plan/Problems-Billing Assessment: 88 year old female POD# 8 s/p exlap lysis of adhesions for SBO - Patient Problems (1) SBO (small bowel obstruction) Current Visit: Yes Status: Acute Priority: High Code(s): K56.609 - UNSP INTESTNL OBST, UNSP TO PARTIAL VERSUS COMPLETE OBST SNOMED Code(s): 124982170 Comment: - S/P lysis of adhesions 10/16/18 pod Day # 10. NG tube out 10/18. - Improving now, off IVF, eating - Diarrhea resolved. (2) HTN (hypertension) Current Visit: Yes Status: Acute Priority: Medium Code(s): I10 - ESSENTIAL (PRIMARY) HYPERTENSION SNOMED Code(s): 00626531 Comment: - tolerating lisinopril 10 mg daily (3) Depression Current Visit: Yes Status: Acute Priority: Medium Code(s): F32.9 - MAJOR DEPRESSIVE DISORDER, SINGLE EPISODE, UNSPECIFIED SNOMED Code(s): 38723226 Comment: -started on sertraline over weekend due to low energy, flat affect (4) DVT prophylaxis Current Visit: Yes Status: Acute Priority: Low Code(s): NUZ2730 - SNOMED Code(s): 638512112 Comment: Heparin SQ (5) Hypomagnesemia Current Visit: Yes Status: Acute Priority: Medium Code(s): E83.42 - HYPOMAGNESEMIA SNOMED Code(s): 438392200 Comment: Will supplement PO and IV Status and Disposition: inpatient, probable discharge in 2 days to home w/ brother
[2018-10-27] MEDS: Ondansetron INJ* 2 MG/ML VIAL IV PRN (04:58)
[2018-10-27] MEDS: Sertraline* 25 MG TAB PO SCH (08:27)
[2018-10-27] MEDS: Heparin VIAL(*) 5000 UNITS/ML VIAL (FIVE THOUSAND) SUBCUT SCH ×2 (08:27→21:06)
[2018-10-27] MEDS: Famotidine IV* 10 MG/ML 2 ML (20 mg) IV SCH ×2 (08:27→21:06)
[2018-10-27] MEDS: Lisinopril TAB* 10 MG PO SCH (08:28)
[2018-10-27] MEDS: Magnesium Oxide TAB* 400 MG PO SCH ×2 (08:28→21:06)
--- NOTE | 2018-10-27 12:45 | PN ---
Progress Note - Progress Note Date of Service: 10/27/18 Note: POD # 11. CHAYITO. Patient states she is not feeling as well today as she did yesterday, more fatigue and nausea. Pain is well-controlled at this time. She did note headache last night that resolved with tylenol, and vision change with the appearance of pink dots around the room that lasted about 10 minutes. Passing flatus, no bowel movement this morning, denies vomiting. Denies much oral fluids, tolerated breakfast today. Ambulated this morning and patient noted this was more difficult today due to fatigue. O: Vital Signs - 24 hr 10/26/18 10/26/18 10/26/18 15:16 15:18 16:00 Temperature 98.3 F 98.3 F Pulse Rate 80 80 Respiratory 16 16 Rate Blood Pressure 170/83 170/83 (mmHg) O2 Sat by Pulse 96 96 96 Oximetry 10/26/18 10/26/18 10/26/18 20:03 20:44 20:48 Temperature 98.2 F Pulse Rate 75 Respiratory 16 16 16 Rate Blood Pressure 173/71 (mmHg) O2 Sat by Pulse 95 Oximetry 10/26/18 10/27/18 10/27/18 23:55 00:00 03:43 Temperature 97.4 F 98.0 F Pulse Rate 78 86 Respiratory 17 16 Rate Blood Pressure 167/79 163/83 (mmHg) O2 Sat by Pulse 94 94 96 Oximetry 10/27/18 10/27/18 07:32 08:00 Temperature 97.5 F Pulse Rate 79 Respiratory 16 18 Rate Blood Pressure 139/108 (mmHg) O2 Sat by Pulse 92 92 Oximetry Intake and Output Last 24 Hours 10/25/18 10/26/18 10/27/18 10/28/18 06:59 06:59 06:59 06:59 Intake Total 1420 1871 1380 Output Total 197 526 2440 0 Balance 470 1071 -1245 0 Intake: IV Fluids 990 961 D5 NS w/20K 990 961 IVPB 50 mag 50 Oral 202 669 6799 Output: Urine 275 013 7676 0 Other: Estimated Void Large Medium Date of Last Bowel 10/25/18 Movement # Bowel Movements 0 1 1 Estimated Stool Amount Medium Small Medium # Voids 1 2 PE: General: Patient is sitting in bed in NAD. Mouth: Mucus membranes dry. Lungs: CTA bilaterally Heart: RRR. Grade II systolic murmur noted at right sternal boarder. Pulse 2 + radial. Abdomen: Soft, without distention, guarding or rigidity. Slight tenderness to LLQ with palpation. Vertical incision healing well without erythema or swelling. A: s/p CHAYITO P: Patient is not feeling as well today as she was yesterday. She continues to pass flatus and is tolerating diet and oral intake. Incision is healing well without signs of infection. Patient is clinically meeting criteria for discharge ; however patient does not agree with this and feels as though she is not well enough to go home today due to her nausea and fatigue. At this time it is not unreasonable to keep her overnight and consider discharge in the morning. Patient plans on living with her son as she transitions back to living at the [facility]. Encouraged increased fluid intake and ambulation.
[2018-10-27 14:25] LABS: ABS Basophils 0 10^3/ul (0-0.2); ABS Eosinophils 0.1 10^3/ul (0-0.6); ABS Lymphocytes 0.9 10^3/ul (1.0-4.8); ABS Monocytes 0.4 10^3/ul (0-0.8); ABS Neutrophils 4.9 10^3/ul (1.5-7.7); ABS Nucleated RBC 0 10^3/ul; Eosinophil % 1.4 %; Hematocrit 33 % (33-41); Hemoglobin 11.1 g/dL (12.0-16.0); Lymphocyte % 14.6 %; Mean Corpuscular HGB Conc 34 g/dL (31-36); Mean Corpuscular Hemoglobin 30 pg (27-31); Mean Corpuscular Volume 89 fL (80-97); Nucleated Red Blood Cells % 0; Platelet Count 455 10^3/uL (150-450); Red Blood Count 3.68 10^6 /uL (3.70-4.87); Red Cell Distribution Width 13 % (10.5-15); White Blood Count 6.3 10^3/uL (3.5-10.8)
--- NOTE | 2018-10-27 16:33 | PN ---
Progress Note - Progress Note Date of Service: 10/27/18 Note: S: Patient seen and examined. Also reviewed with PA student, Anamaria Arthur. Pt c /o that she's had a rough week, between diarrhea and abdominal pain (both of which seem to have subsided), but is better today. Uriel diet, though not much appetite. Ambulating. O: Vital Signs - 8 hr 10/27/18 10/27/18 10/27/18 12:13 15:09 16:00 Temperature 97.9 F 97.9 F Pulse Rate 105 96 Respiratory 16 18 Rate Blood Pressure 122/78 132/76 (mmHg) O2 Sat by Pulse 95 96 96 Oximetry Intake and Output Last 24 Hours 10/25/18 10/26/18 10/27/18 10/28/18 06:59 06:59 06:59 06:59 Intake Total 1420 1871 1380 230 Output Total 798 037 0094 250 Balance 470 1071 -1245 -20 Intake: IV Fluids 990 961 D5 NS w/20K 990 961 IVPB 50 mag 50 Oral 062 148 0329 230 Output: Urine 775 321 3526 250 Other: Estimated Void Large Medium Date of Last Bowel 10/25/18 Movement # Bowel Movements 0 1 1 Estimated Stool Amount Medium Small Medium # Voids 1 2 Gen: thin, elderly female in bed, in NAD Heart: reg Lungs: clear upper [place]; bases sl decreased Abd: midline incision healing well; no s/sx of infection; +BS; soft; no sig tenderness A: s/p laparotomy, CHAYITO for SBO; improving P: plan for home 10/28; she will go initially to her son's home, then eventually back to [facility]. Office f/u next week.
--- NOTE | 2018-10-27 20:25 | PN ---
Subjective Date of Service: 10/27/18 Interval History: Patient tolerating small amounts of food. Diarrhea has resolved. She is ambulatory to bathroom. Has some mild abdominal discomfort. Family History: Unchanged from Admission Social History: Unchanged from Admission Past Medical History: Unchanged from Admission Objective Active Medications: Acetaminophen (Tylenol Tab*) 650 mg PO Q6H PRN PRN Reason: PAIN or FEVER Last Admin: 10/26/18 10:55 Dose: 650 mg Famotidine (Pepcid Iv*) 20 mg IV Q12H [facility] Last Admin: 10/27/18 08:27 Dose: 20 mg Heparin Sodium (Porcine) (Heparin Vial(*)) 5,000 units SUBCUT Q12HR [facility] Last Admin: 10/27/18 08:27 Dose: 5,000 units Hydralazine HCl (Apresoline Iv*) 10 mg IV SLOW PU Q2H PRN PRN Reason: SYSTOLIC BP GREATER THAN: Last Admin: 10/25/18 00:45 Dose: 10 mg Labetalol HCl (Trandate Iv*) 20 mg IV PUSH Q2H PRN PRN Reason: BLOOD PRESSURE Lisinopril (Prinivil Tab*) 10 mg PO DAILY [facility] Last Admin: 10/27/18 08:28 Dose: 10 mg Magnesium Oxide (Magox 400 Tab*) 400 mg PO BID [facility] Last Admin: 10/27/18 08:28 Dose: 400 mg Ondansetron HCl (Zofran Inj*) 4 mg IV Q4H PRN PRN Reason: NAUSEA Last Admin: 10/27/18 04:58 Dose: 4 mg Sertraline HCl (Zoloft*) 25 mg PO DAILY [facility] Last Admin: 10/27/18 08:27 Dose: 25 mg Vital Signs - 8 hr 10/27/18 10/27/18 15:09 16:00 Temperature 36.6 C Pulse Rate 96 Respiratory 18 Rate Blood Pressure 132/76 (mmHg) O2 Sat by Pulse 96 96 Oximetry Oxygen Devices in Use Now: None Appearance: frail, alert, NAD Neck: NL Appearance and Movements; NL JVP Respiratory: Clear to Auscultation Cardiovascular: NL Sounds; No Murmurs; No JVD Abdominal: NL Sounds; No Tenderness; No Distention, No Hepatosplenomegaly Neurological: Alert and Oriented x 3 Lines/Tubes/Other Access: Clean, Dry and Intact Peripheral IV Nutrition: Taking PO's Result Diagrams: 10/27/18 05:22 10/24/18 05:45 Assess/Plan/Problems-Billing Assessment: 88 year old female POD# 11 s/p exlap lysis of adhesions for SBO - Patient Problems (1) SBO (small bowel obstruction) Current Visit: Yes Status: Acute Priority: High Code(s): K56.609 - UNSP INTESTNL OBST, UNSP TO PARTIAL VERSUS COMPLETE OBST SNOMED Code(s): 454933034 Comment: - S/P lysis of adhesions 10/16/18 pod Day # 11. NG tube out 10/18. - Improving now, off IVF, eating - Diarrhea resolved. - Can be discharged home w/ family tomorrow (2) HTN (hypertension) Current Visit: Yes Status: Acute Priority: Medium Code(s): I10 - ESSENTIAL (PRIMARY) HYPERTENSION SNOMED Code(s): 73001619 Comment: - tolerating lisinopril 10 mg daily (3) Depression Current Visit: Yes Status: Acute Priority: Medium Code(s): F32.9 - MAJOR DEPRESSIVE DISORDER, SINGLE EPISODE, UNSPECIFIED SNOMED Code(s): 22692998 Comment: -started on sertraline over weekend due to low energy, flat affect -Will need to see PCP for f/u in 4-5 wks (4) DVT prophylaxis Current Visit: Yes Status: Acute Priority: Low Code(s): RBJ8461 - SNOMED Code(s): 659958793 Comment: Heparin SQ (5) Hypomagnesemia Current Visit: Yes Status: Acute Priority: Medium Code(s): E83.42 - HYPOMAGNESEMIA SNOMED Code(s): 334190167 Comment: Will supplement PO and IV Status and Disposition: inpatient, probable discharge in 2 days to home w/ family
[2018-10-27] MEDS: Acetaminophen TAB* 325 MG PO PRN (21:05)
[2018-10-28] MEDS: Acetaminophen TAB* 325 MG PO PRN ×2 (03:30→09:44)
[2018-10-28 08:31] VITALS: BP 156/76
--- NOTE | 2018-10-28 09:30 | PN ---
Progress Note - Progress Note Date of Service: 10/28/18 Note: S: Cont to do well. Denies pain. Uriel diet. No N/V, diarrhea. Cont to pass flatus. Denies SOB. Denies any further visual sx assoc w/ VIGIL (migraine variant?) . O: Vital Signs - 8 hr 10/28/18 10/28/18 03:22 07:31 Temperature 98.0 F 98.5 F Pulse Rate 85 81 Respiratory 17 16 Rate Blood Pressure 165/77 156/76 (mmHg) O2 Sat by Pulse 93 95 Oximetry Intake and Output Last 24 Hours 10/26/18 10/27/18 10/28/18 10/29/18 06:59 06:59 06:59 06:59 Intake Total 1871 1380 1070 Output Total 800 2625 900 Balance 1071 -1245 170 Intake: IV Fluids 961 D5 NS w/20K 961 IVPB 50 mag 50 Oral 910 1330 1070 Output: Urine 800 2625 900 Other: Estimated Void Medium Date of Last Bowel 10/25/18 Movement # Bowel Movements 1 1 0 Estimated Stool Amount Small Medium # Voids 2 Gen: appears comfortable Heart: reg Lungs: clear Abd: incision ok; steris intact; soft; nontender to palp A: s/p ex lap, CHAYITO for SBO, doing well P: home today w/ son. Office f/u as per d/c instructions.
[2018-10-28] MEDS: Famotidine IV* 10 MG/ML 2 ML (20 mg) IV SCH (09:44)
[2018-10-28] MEDS: Lisinopril TAB* 10 MG PO SCH (09:44)
[2018-10-28] MEDS: Magnesium Oxide TAB* 400 MG PO SCH (09:44)
[2018-10-28] MEDS: Heparin VIAL(*) 5000 UNITS/ML VIAL (FIVE THOUSAND) SUBCUT SCH (09:44)
[2018-10-28] MEDS: Sertraline* 25 MG TAB PO SCH (09:44)
--- NOTE | 2018-10-28 11:56 | DS ---
CC: Dr. Shay Tai at [facility]* DISCHARGE SUMMARY: DATE OF ADMISSION: 10/14/18 DATE OF DISCHARGE: 10/28/18 ATTENDING SURGEON: Dr. Jose Rafael Mendes* (dictated by TESSY So). HOSPITAL COURSE: Please refer to admission history and physical and operative note for details. Briefly, the patient is an 88-year-old female who was admitted with signs, symptoms and imaging consistent with small bowel obstruction. She was observed medically without improvement and was taken to the operating room on 10/16/18, at which time she underwent an exploratory laparotomy with lysis of adhesions by Dr. Mendes. Surgery itself was uncomplicated. Over the next 10 days or so, she has had intermittent abdominal pain, distention consistent with ileus. This was then followed by a period of diarrhea, which has since stopped. As of the morning of discharge, she is tolerating soft diet well and has not had any diarrhea in the last 24 hours. She continues to pass flatus. She denies abdominal pain or shortness of breath. She is ambulatory. PHYSICAL EXAMINATION: Please see progress note from the same date. IMPRESSION: Status post exploratory laparotomy with lysis of adhesions for a small bowel obstruction, improved. PLAN: Home today. She will be staying with her son initially and then eventually back to her place at [facility]. She will resume her usual antihypertensive medications with recommended followup with Dr. Tai within 2 to 4 weeks. She has an appointment for surgical followup with Dr. Mendes on 11/05/18. Her arun had already been removed. She will not require any additional prescriptions at this point. She is discharged to home (her son's home) in good condition. TESSY SO [id number]/[facility] #: [id number] [facility]
== END 2018-10-28 13:30 | disposition home health service (06) | DRG 337 ==
LOC: ED 04:40 → MED 11:14 → OBSVTOIN 10-15 07:47 → SSU 10-16 18:19
PROVIDERS: ADMIT Internal Medicine; ATTEND Surgery
PROC: 0DN80ZZ Release Small Intestine, Open Approach (ICD-10-PCS; principal; 2018-10-16 12:42)
DX: K56.52 Intestinal adhesions [bands] with complete obstruction (principal); I10 Essential (primary) hypertension; H26.9 Unspecified cataract; K57.30 Diverticulosis of large intestine without perforation or abscess without bleeding; K80.20 Calculus of gallbladder without cholecystitis without obstruction; K76.89 Other specified diseases of liver; R73.03 Prediabetes; K56.7 Ileus, unspecified; F32.9 Major depressive disorder, single episode, unspecified; E83.42 Hypomagnesemia; R54 Age-related physical debility; Z80.6 Family history of leukemia; Z90.710 Acquired absence of both cervix and uterus; Z82.49 Family history of ischemic heart disease and other diseases of the circulatory system; Z72.89 Other problems related to lifestyle; Z98.41 Cataract extraction status, right eye
CPT/HCPCS: 36415; 74019; 74177; 80048; 80053; 81003; 81015; 82150; 83036; 83605; 83690; 83735; 84100; 84484; 85025; 85027; 85610; 85730; 86140; 87086; 93005; 99285; A9270-GY; G8978-GP-CI; G8979-GP-CI; G8980-GP-CI; J0330; J0360; J0694; J1100; J1644; J2270; J2405; J2704; J3010; J3475; J3480; Q9967